=== PATIENT | female | born 1955 | race Caucasian/White ===

== ENCOUNTER 2016-03-12 08:08 | Inpatient (IN) | payer OTHER ==
[~2016-03-12] VITALS: Ht 154.9 cm; Wt 67.3 kg
[2016-03-12] MEDS ORDERED: ONDANSETRON PF 4 MG/2 ML VIAL. IV PRN ×2 (08:30→14:30)
[2016-03-12] MEDS ORDERED: MORPHINE SULFATE 2 MG/ML DISP.SYRIN. IV PRN (08:30)
--- NOTE | 2016-03-12 08:58 | EKG ---
[facility] [address] [place] [address] Test Date: 2016-03-12 Test Time: 08:31:35 Pat Name: SHAVON LIM Department: Room: Gender: F Maintenance Machinist: : [id number] Requested By: HILDA SILVEIRA Order Number: [id number] Reading MD: Measurements Intervals [place] Rate: 84 P: 50 [place]: 210 QRS: 52 QRSD: 108 T: 55 QT: 378 QTc: 450 Interpretive Statements SINUS RHYTHM LEFT ATRIAL ABNORMALITY ABNORMAL ECG RI6.01 No previous ECG available for comparison
[2016-03-12 09:04] LABS: BASO % 0 % (0-3); EOS % 0 % (0-3); HEMATOCRIT 38.8 % (36.0-47.0); HEMOGLOBIN 12.5 g/dL (12.0-15.5); LYMPH # 1.1 x10^3/uL (1.0-4.8); LYMPH % 7 % (24-48); MEAN CORPUSCULAR HEMOGLOBIN 29 pg (25-35); MEAN CORPUSCULAR HGB CONC 32 g/dL (31-37); MEAN CORPUSCULAR VOLUME 90 fL (79-100); MONO % 3 % (0-9); NEUT % 89 % (31-73); PLATELET COUNT 293 x10^3/uL (140-400); RED BLOOD COUNT 4.33 x10^6/uL (3.50-5.40); RED CELL DISTRIBUTION WIDTH 17.3 % (11.5-14.5); WHITE BLOOD COUNT 15.4 x10^3/uL (4.0-11.0)
[2016-03-12 09:13] LABS: INR 1.2 (0.8-1.1); PROTHROMBIN TIME PATIENT 14.7 SEC (11.7-14.0)
[2016-03-12 09:27] LABS: CALCIUM 9.4 mg/dL (8.5-10.1); CREATININE 2.1 mg/dL (0.6-1.0); GFR 23.9
--- NOTE | 2016-03-12 09:27 | RAD ---
AP portable chest radiograph 03/12/2016 Clinical History: Hypoxia. An AP portable erect digital radiograph of the chest was obtained. No previous studies are available for comparison. The cardiac and mediastinal silhouettes are within normal limits in size and configuration. Linear bands of subsegmental atelectasis seen involving both lower lobes. No area of consolidation is seen. No pneumothorax or pleural effusion is noted. Degenerative changes are seen involving the thoracic spine and both shoulders. Impression: Linear bands of subsegmental atelectasis are seen involving both lower lobes. No area of consolidation is seen.
[2016-03-12] MEDS ORDERED: DIPHTH,PERTUSS(ACELL),TET TOX 0.5 ML DISP.SYRIN. VAX IM ONE (09:30)
[2016-03-12 09:31] LABS: ALBUMIN 3.3 g/dL (3.4-5.0); DIRECT BILIRUBIN 0.1 mg/dL (0.0-0.2); TOTAL BILIRUBIN 0.6 mg/dL (0.2-1.0); TOTAL PROTEIN 8.4 g/dL (6.4-8.2)
--- NOTE | 2016-03-12 09:33 | RAD ---
CT scan of the head without contrast 03/12/2016 Clinical History: Fall with head trauma. Technique: Unenhanced, contiguous, 5 mm axial sections were obtained through the head. One or more of the following individualized dose reduction techniques were utilized for this study: 1. Automated exposure control. 2. Adjustment of the mA and/or kV according to patient size. 3. Use of iterative reconstruction technique. Findings: No previous studies are available for comparison. There is generalized parenchymal atrophy. Small scattered areas of decreased attenuation are seen within the periventricular and subcortical white matter of both cerebral hemispheres consistent with areas of small vessel ischemic disease. No acute parenchymal abnormality is seen. No extra-axial fluid collection is noted. No skull fracture is seen. Impression: No acute intracranial abnormality is seen. CT scan of the cervical spine without contrast 03/12/2016 Clinical history: Neck pain post fall. Technique: Unenhanced, contiguous, 0.625 mm axial sections were obtained through the cervical spine. 3 mm reconstructed sagittal, axial, and and coronal images were obtained. One or more of the following individualized dose reduction techniques were utilized for this study: 1. Automated exposure control. 2. Adjustment of the mA and/or kV according to patient size. 3. Use of iterative reconstruction technique. Findings: Sagittal and coronal reconstructed images demonstrate very mild lateral curvature of the lumbar spine convex to the right. There is straightening of the normal cervical lordosis. Degenerative changes consisting of disc space narrowing, vertebral endplate sclerosis and mild to moderate anterior and posterior vertebral body osteophyte formation seen along the mid and lower cervical disc spaces. No fracture or subluxation of the cervical vertebrae seen. Degenerative changes are seen involving the uncovertebral and facet joints throughout the cervical disc spaces. Impression: No fracture or subluxation of the cervical vertebra is seen.
--- NOTE | 2016-03-12 09:36 | PHYS DOC ---
Past Medical History Past Medical History: Bipolar, Bronchitis Additional Past Medical Histor: morgellons disease Past Surgical History: Hysterectomy, Knee Replacement, Tonsillectomy Alcohol Use: None Drug Use: None Adult General Chief Complaint Chief Complaint: MECHANICAL FALL HPI HPI 60-year-old female presenting to the emergency department today after reportedly falling approximately 2 hours prior to arrival. She reports slipping on a step and injuring her head. She presents with an abrasion to her left forehead. She reports insomnia recently but denies pain in her neck chest abdomen or pelvis. Onset 2 hours Location head Duration intermittent No alleviating factors Review of systems is negative for chest pain shortness of breath abdominal pain nausea vomiting fevers chills cough. All other review of systems is negative unless otherwise noted in history of present illness. Review of Systems Review of Systems SEE ABOVE. Current Medications Current Medications Current Medications Medications (Trade) Dose Ordered Sig/Yeny Start Time Stop Time Status Last Admin Dose Admin Diphtheria/ Tetanus/Acell Pertussis (Boostrix) 0.5 ml ONCE ONCE 03/12/16 09:30 03/12/16 09:37 DC Morphine Sulfate 2 mg PRN Q2HR PRN 03/12/16 08:30 03/13/16 08:29 Ondansetron HCl (Zofran) 4 mg PRN Q8HRS PRN 03/12/16 08:30 03/13/16 08:29 Allergies Allergies Allergies Coded Allergies Type Severity Reaction Last Updated Verified No Known Drug Allergies 03/12/16 No Physical Exam Physical Exam Constitutional: Well developed, well nourished, no acute distress, non-toxic appearance. HENT: Normocephalic, abrasion to the left forehead. Nontender midline cervical spine. Nontender thoracic and lumbar spine of the back. No step-offs present of the back. No abrasions lacerations or ecchymosis of the back present. bilateral external ears normal, oropharynx moist, no oral exudates, nose normal. Eyes: PERRLA, EOMI, conjunctiva normal, no discharge. Neck: Normal range of motion, no tenderness, supple, no stridor. Cardiovascular:Heart rate regular rhythm, no murmur Lungs & Thorax: Bilateral breath sounds clear to auscultation [] Abdomen: Bowel sounds normal, soft, no tenderness, no masses, no pulsatile masses. Skin: Warm, dry, no erythema, no rash. [] Back: No tenderness, no CVA tenderness. SEE ABOVE Extremities: Patient's left hand has small abrasion. Mild tenderness locally without swelling. Normal neurovascular status distally with 2 second cap refill. Palpable pulse. Otherwise nontender extremities with normal range of motion. Neurologic: Alert and oriented X 3, normal motor function, normal sensory function, no focal deficits noted. Psychologic: Affect normal, judgement normal, mood normal. [] Current Patient Data Vital Signs Vital Signs Date Time Temp Pulse Resp B/P Pulse Ox O2 Delivery O2 Flow Rate FiO2 03/12/16 08:30 97.4 83 18 147/64 85 Room Air 97.4 Lab Values Laboratory Tests Test 03/12/16 08:54 White Blood Count 15.4x10^3/uL (4.0-11.0) H Red Blood Count 4.33x10^6/uL (3.50-5.40) Hemoglobin 12.5g/dL (12.0-15.5) Hematocrit 38.8% (36.0-47.0) Mean Corpuscular Volume 90fL (79-100) Mean Corpuscular Hemoglobin 29pg (25-35) Mean Corpuscular Hemoglobin Concent 32g/dL (31-37) Red Cell Distribution Width 17.3% (11.5-14.5) H Platelet Count 293x10^3/uL (140-400) Neutrophils (%) (Auto) 89% (31-73) H Lymphocytes (%) (Auto) 7% (24-48) L Monocytes (%) (Auto) 3% (0-9) Eosinophils (%) (Auto) 0% (0-3) Basophils (%) (Auto) 0% (0-3) Neutrophils # (Auto) 13.7x10^3uL (1.8-7.7) H Lymphocytes # (Auto) 1.1x10^3/uL (1.0-4.8) Monocytes # (Auto) 0.5x10^3/uL (0.0-1.1) Eosinophils # (Auto) 0.0x10^3/uL (0.0-0.7) Basophils # (Auto) 0.0x10^3/uL (0.0-0.2) Platelet Estimate Pending Prothrombin Time 14.7SEC (11.7-14.0) H Prothrombin Time INR 1.2 (0.8-1.1) H PTT 35SEC (24-38) Sodium Level 140mmol/L (136-145) Potassium Level 5.0mmol/L (3.5-5.1) Chloride Level 102mmol/L (98-107) Carbon Dioxide Level 26mmol/L (21-32) Anion Gap 12 (6-14) Blood Urea Nitrogen 62mg/dL (7-20) H Creatinine 2.1mg/dL (0.6-1.0) H Estimated GFR (Cockcroft-Gault) 23.9 Glucose Level 165mg/dL (70-99) H Serum Osmolality 314mOsm/Kg (279-304) H Lactic Acid Level 1.0mmol/L (0.4-2.0) Calcium Level 9.4mg/dL (8.5-10.1) Total Bilirubin 0.6mg/dL (0.2-1.0) Direct Bilirubin 0.1mg/dL (0.0-0.2) Aspartate Amino Transferase (AST) 25U/L (15-37) Alanine Aminotransferase (ALT) 16U/L (14-59) Alkaline Phosphatase 121U/L (46-116) H Troponin I Quantitative < 0.017ng/mL (0.000-0.055) EO-Ksf-N-Type Natriuretic Peptide 1403pg/mL (0-124) H Total Protein 8.4g/dL (6.4-8.2) H Albumin 3.3g/dL (3.4-5.0) L Lipase 71U/L (73-393) L Salicylates Level 4.2mg/dL (2.8-20.0) Salicylate Last Dose Date Unknown Salicylate Last Dose Time Unknown Acetaminophen Level < 2mcg/ml (10-30) L Acetaminophen Last Dose Date Unknown Acetaminophen Last Dose Time Unknown Ethyl Alcohol Level < 10mg/dL (0-10) Laboratory Tests 03/12/16 08:54 Laboratory Tests 03/12/16 08:54 EKG EKG []EKG shows sinus rhythm with regular rate. Normal intervals. Normal axis. ST segments are congruent. Not suggestive of ACS. Reviewed by myself. Radiology/Procedures Radiology/Procedures [] Course & Med Decision Making Course & Med Decision Making Pertinent Labs and Imaging studies reviewed. (See chart for details) [] 60-year-old female presenting to the emergency department with traumatic mechanical fall with head injury approximately 2 hours prior to arrival. On initial evaluation the patient's vital signs showed that she was afebrile with a regular rate. Saturating 85% on room air. Nasal cannula applied. Otherwise mildly hypertensive. Patient is alert and oriented to person place and person. Otherwise nonfocal neurologic exam. EKG unremarkable. Chest x-ray shows atelectasis. Head CT and C-spine CT neg for acute pathology. Blood work obtained which shows leukocytosis which may be traumatic. Coagulation testing just above the reference range of normal. Given the patient's hypoxia. The patient was admitted to our hospital for further evaluation monitoring workup and care. Dragon Disclaimer Dragon Disclaimer This electronic medical record was generated, in whole or in part, using a voice recognition dictation system. Departure Departure Impression: Primary Impression: Hypoxia Additional Impression: Head trauma Disposition: ADMITTED INPATIENT Admitting Physician: Hector Fletcher Condition: STABLE Problem Qualifiers HILDA SILVEIRA MD Mar 12, 2016 09:36
[2016-03-12 09:45] LABS: ETHANOL < 10 mg/dL (0-10)
--- NOTE | 2016-03-12 09:55 | RAD ---
Three-view left hand radiographs 03/12/2016 Clinical history: Left hand abrasion. PA, lateral and oblique digital radiographs of the left hand were obtained. No fracture or dislocation of the left hand is seen. Mild degenerative changes are seen throughout the interphalangeal joints of the left hand. Mild to moderate degenerative changes are seen involving the first carpometacarpal joint. No radiopaque foreign body is seen. Impression: No fracture or dislocation of the left hand is seen.
[2016-03-12 10:03] LABS: BILIRUBIN,URINE SMALL (NEG); GLUCOSE,URINE NEGATIVE (NEG); NITRITE,URINE NEGATIVE (NEG); PROTEIN,URINE 100 mg/dL (NEG-TRACE); UROBILINOGEN,URINE 0.2 mg/dL (0.2 mg/dL)
[2016-03-12 10:25] LABS: BARBITURATES NEG (NEG); BENZODIAZEPINES NEG (NEG); CANNABINOIDS NEG (NEG); COCAINE NEG (NEG); METHADONE NEG (NEG); OPIATES POS (NEG); PHENCYCLIDINE NEG (NEG)
[2016-03-12 10:27] LABS: BACTERIA,URINE FEW /HPF (0-FEW); ETHANOL, URINE NEG (NEG); SQUAMOUS EPITHELIAL CELL,UR FEW /LPF
[2016-03-12 11:00] VITALS: BP 128/72
[2016-03-12] MEDS: IV NORMAL SALINE 1000ML BAG 1,000 ML IV SCH ×3 (12:23→22:27)
[2016-03-12 12:25] LABS: HCO3 ABG 24 mmol/L (21-28); PCO2 ABG 53 mmHg (35-46); PH ABG 7.28 (7.35-7.45); PO2 ABG 59 mmHg (65-108); SAT O2 ABG 88 % (92-99)
[2016-03-12 12:26] LABS: FIO2 ABG 32%
[2016-03-12] MEDS ORDERED: ALBUTEROL SULFATE 2.5 MG/3 ML NEBU. NEB PRN (14:30)
[2016-03-12] MEDS ORDERED: ACETAMINOPHEN 325 MG TABLET. PO PRN (14:30)
--- NOTE | 2016-03-12 14:34 | PDOC1 ---
History and Physical Date of Admission Date of Admission 03/12/16 Identification/Chief Complaint Chief Complaint fall Problems: Source Source: Chart review, Patient History of Present Illness History of Present Illness HPI 60-year-old female presenting to the emergency department today post fall. Pt is lethargic, closing her eyes most of time , answer some of my questions. Pt seems come from a long term, fell today ,and was sent here. She said she didnot know why she is here, denies fever, chills, N/V, diarrhea. + mild cough. smoker 1PPD She reports slipping on a step and injuring her head. She presents with an abrasion to her left forehead. She reports insomnia recently but denies pain in her neck chest abdomen or pelvis. Past Medical History Past Medical History Bipolar, Bronchitis Additional Past Medical Histor: morgellons disease Past Surgical History Past Surgical History Hysterectomy, Knee Replacement, Tonsillectomy Family History Family History: No Significant Social History Smoke: 1 pack per day ALCOHOL: social Drugs: None Current Problem List Problem List Problems Medical Problems: (1) Head trauma Status: Acute (2) Hypoxia Status: Acute (3) Hypoxic Status: Acute Current Medications Current Medications Current Medications Medications (Trade) Dose Ordered Sig/Yeny Start Time Stop Time Status Last Admin Dose Admin Diphtheria/ Tetanus/Acell Pertussis 0.5 ml 0.5 ml ONCE ONCE 03/12/16 09:30 03/12/16 09:37 DC Morphine Sulfate 2 mg PRN Q2HR PRN 03/12/16 08:30 03/13/16 08:29 Ondansetron HCl (Zofran) 4 mg PRN Q8HRS PRN 03/12/16 08:30 03/13/16 08:29 Sodium Chloride (Iv Sodium Chloride 0.9% 1000ml Bag) 1,000 ml @ 100 mls/hr Q10H 03/12/16 12:15 03/12/16 13:25 100 MLS/HR Allergies Allergies Allergies Coded Allergies Type Severity Reaction Last Updated Verified No Known Drug Allergies 03/12/16 No ROS Review of System CONSTITUTIONAL: No fever or chills EYES: No recent changes SKIN: No rash or itching CARDIOVASCULAR: No chest pain, syncope, palpitations, or edema RESPIRATORY: No SOB or cough GASTROINTESTINAL: No nausea, vomiting or abdominal pain NEUROLOGICAL: No headaches or weakness ENDOCRINE: No cold or heat intolerance GENITOURINARY: No urgency or frequency of urination MUSCULOSKELETAL: No back pain or joint pain LYMPHATICS: No enlarged lymph nodes PSYCHIATRIC: No anxiety or depression Physical Exam Physical Exam GEN.: No apparent distress. lethargic, knows place, person, not years HEENT: Head is normocephalic, atraumatic NECK: Supple. LUNGS: bl rhonchis HEART: RRR, S1, S2 present. Peripheral pulses intact ABDOMEN: Soft, nontender. Positive bowel sounds. EXTREMITIES: Without any cyanosis. NEUROLOGIC: Normal speech, normal tone PSYCHIATRIC: Normal affect, normal mood. SKIN: No ulcerations Vitals Vitals Vital Signs Date Time Temp Pulse Resp B/P Pulse Ox O2 Delivery O2 Flow Rate FiO2 03/12/16 10:41 Nasal Cannula 3.0 03/12/16 10:00 82 16 155/70 98 03/12/16 08:30 97.4 97.4 Labs Labs Laboratory Tests Test 03/12/16 08:54 03/12/16 09:52 03/12/16 12:05 White Blood Count 15.4x10^3/uL (4.0-11.0) Red Blood Count 4.33x10^6/uL (3.50-5.40) Hemoglobin 12.5g/dL (12.0-15.5) Hematocrit 38.8% (36.0-47.0) Mean Corpuscular Volume 90fL (79-100) Mean Corpuscular Hemoglobin 29pg (25-35) Mean Corpuscular Hemoglobin Concent 32g/dL (31-37) Red Cell Distribution Width 17.3% (11.5-14.5) Platelet Count 293x10^3/uL (140-400) Neutrophils (%) (Auto) 89% (31-73) Lymphocytes (%) (Auto) 7% (24-48) Monocytes (%) (Auto) 3% (0-9) Eosinophils (%) (Auto) 0% (0-3) Basophils (%) (Auto) 0% (0-3) Neutrophils # (Auto) 13.7x10^3uL (1.8-7.7) Lymphocytes # (Auto) 1.1x10^3/uL (1.0-4.8) Monocytes # (Auto) 0.5x10^3/uL (0.0-1.1) Eosinophils # (Auto) 0.0x10^3/uL (0.0-0.7) Basophils # (Auto) 0.0x10^3/uL (0.0-0.2) Prothrombin Time 14.7SEC (11.7-14.0) Prothromb Time International Ratio 1.2 (0.8-1.1) Activated Partial Thromboplast Time 35SEC (24-38) Sodium Level 140mmol/L (136-145) Potassium Level 5.0mmol/L (3.5-5.1) Chloride Level 102mmol/L (98-107) Carbon Dioxide Level 26mmol/L (21-32) Anion Gap 12 (6-14) Blood Urea Nitrogen 62mg/dL (7-20) Creatinine 2.1mg/dL (0.6-1.0) Estimated GFR (Cockcroft-Gault) 23.9 Glucose Level 165mg/dL (70-99) Serum Osmolality 314mOsm/Kg (279-304) Lactic Acid Level 1.0mmol/L (0.4-2.0) Calcium Level 9.4mg/dL (8.5-10.1) Total Bilirubin 0.6mg/dL (0.2-1.0) Direct Bilirubin 0.1mg/dL (0.0-0.2) Aspartate Amino Transf (AST/SGOT) 25U/L (15-37) Alanine Aminotransferase (ALT/SGPT) 16U/L (14-59) Alkaline Phosphatase 121U/L (46-116) Troponin I Quantitative < 0.017ng/mL (0.000-0.055) XB-Nwv-W-Type Natriuretic Peptide 1403pg/mL (0-124) Total Protein 8.4g/dL (6.4-8.2) Albumin 3.3g/dL (3.4-5.0) Lipase 71U/L (73-393) Salicylates Level 4.2mg/dL (2.8-20.0) Salicylate Last Dose Date Unknown Salicylate Last Dose Time Unknown Acetaminophen Level < 2mcg/ml (10-30) Acetaminophen Last Dose Date Unknown Acetaminophen Last Dose Time Unknown Ethyl Alcohol Level < 10mg/dL (0-10) Urine Collection Type U cath Urine Color Yellow Urine Clarity Cloudy Urine pH 5.0 Urine Specific [place] 1.025 Urine Protein 100mg/dL (NEG-TRACE) Urine Glucose (UA) Negativemg/dL (NEG) Urine Ketones (Stick) Tracemg/dL (NEG) Urine Blood Moderate (NEG) Urine Nitrite Negative (NEG) Urine Bilirubin Small (NEG) Urine Urobilinogen Dipstick 0.2mg/dL (0.2 mg/dL) Urine Leukocyte Esterase Negative (NEG) Urine RBC 3-5/HPF (0-2) Urine WBC 1-4/HPF (0-4) Urine Squamous Epithelial Cells Few/LPF Urine Renal Epithelial Cells Few/LPF Urine Amorphous Sediment Present/HPF Urine Bacteria Few/HPF (0-FEW) Urine Hyaline Casts Moderate/HPF Urine Mucus Mod/LPF Urine Opiates Screen Pos (NEG) Urine Methadone Screen Neg (NEG) Urine Barbiturates Neg (NEG) Urine Phencyclidine Screen Neg (NEG) Urine Amphetamine/Methamphetamine Neg (NEG) Urine Benzodiazepines Screen Neg (NEG) Urine Cocaine Screen Neg (NEG) Urine Cannabinoids Screen Neg (NEG) Urine Ethyl Alcohol Neg (NEG) O2 Saturation 88% (92-99) Arterial Blood pH 7.28 (7.35-7.45) Arterial Blood pCO2 at Patient Temp 53mmHg (35-46) Arterial Blood pO2 at Patient Temp 59mmHg (65-108) Arterial Blood HCO3 24mmol/L (21-28) Arterial Blood Base Excess -3mmol/L (-3-3) FiO2 32% Laboratory Tests Test 03/12/16 08:54 03/12/16 09:52 03/12/16 12:05 White Blood Count 15.4x10^3/uL (4.0-11.0) Red Blood Count 4.33x10^6/uL (3.50-5.40) Hemoglobin 12.5g/dL (12.0-15.5) Hematocrit 38.8% (36.0-47.0) Mean Corpuscular Volume 90fL (79-100) Mean Corpuscular Hemoglobin 29pg (25-35) Mean Corpuscular Hemoglobin Concent 32g/dL (31-37) Red Cell Distribution Width 17.3% (11.5-14.5) Platelet Count 293x10^3/uL (140-400) Neutrophils (%) (Auto) 89% (31-73) Lymphocytes (%) (Auto) 7% (24-48) Monocytes (%) (Auto) 3% (0-9) Eosinophils (%) (Auto) 0% (0-3) Basophils (%) (Auto) 0% (0-3) Neutrophils # (Auto) 13.7x10^3uL (1.8-7.7) Lymphocytes # (Auto) 1.1x10^3/uL (1.0-4.8) Monocytes # (Auto) 0.5x10^3/uL (0.0-1.1) Eosinophils # (Auto) 0.0x10^3/uL (0.0-0.7) Basophils # (Auto) 0.0x10^3/uL (0.0-0.2) Prothrombin Time 14.7SEC (11.7-14.0) Prothromb Time International Ratio 1.2 (0.8-1.1) Activated Partial Thromboplast Time 35SEC (24-38) Sodium Level 140mmol/L (136-145) Potassium Level 5.0mmol/L (3.5-5.1) Chloride Level 102mmol/L (98-107) Carbon Dioxide Level 26mmol/L (21-32) Anion Gap 12 (6-14) Blood Urea Nitrogen 62mg/dL (7-20) Creatinine 2.1mg/dL (0.6-1.0) Estimated GFR (Cockcroft-Gault) 23.9 Glucose Level 165mg/dL (70-99) Serum Osmolality 314mOsm/Kg (279-304) Lactic Acid Level 1.0mmol/L (0.4-2.0) Calcium Level 9.4mg/dL (8.5-10.1) Total Bilirubin 0.6mg/dL (0.2-1.0) Direct Bilirubin 0.1mg/dL (0.0-0.2) Aspartate Amino Transf (AST/SGOT) 25U/L (15-37) Alanine Aminotransferase (ALT/SGPT) 16U/L (14-59) Alkaline Phosphatase 121U/L (46-116) Troponin I Quantitative < 0.017ng/mL (0.000-0.055) JY-Zhe-I-Type Natriuretic Peptide 1403pg/mL (0-124) Total Protein 8.4g/dL (6.4-8.2) Albumin 3.3g/dL (3.4-5.0) Lipase 71U/L (73-393) Salicylates Level 4.2mg/dL (2.8-20.0) Salicylate Last Dose Date Unknown Salicylate Last Dose Time Unknown Acetaminophen Level < 2mcg/ml (10-30) Acetaminophen Last Dose Date Unknown Acetaminophen Last Dose Time Unknown Ethyl Alcohol Level < 10mg/dL (0-10) Urine Collection Type U cath Urine Color Yellow Urine Clarity Cloudy Urine pH 5.0 Urine Specific [place] 1.025 Urine Protein 100mg/dL (NEG-TRACE) Urine Glucose (UA) Negativemg/dL (NEG) Urine Ketones (Stick) Tracemg/dL (NEG) Urine Blood Moderate (NEG) Urine Nitrite Negative (NEG) Urine Bilirubin Small (NEG) Urine Urobilinogen Dipstick 0.2mg/dL (0.2 mg/dL) Urine Leukocyte Esterase Negative (NEG) Urine RBC 3-5/HPF (0-2) Urine WBC 1-4/HPF (0-4) Urine Squamous Epithelial Cells Few/LPF Urine Renal Epithelial Cells Few/LPF Urine Amorphous Sediment Present/HPF Urine Bacteria Few/HPF (0-FEW) Urine Hyaline Casts Moderate/HPF Urine Mucus Mod/LPF Urine Opiates Screen Pos (NEG) Urine Methadone Screen Neg (NEG) Urine Barbiturates Neg (NEG) Urine Phencyclidine Screen Neg (NEG) Urine Amphetamine/Methamphetamine Neg (NEG) Urine Benzodiazepines Screen Neg (NEG) Urine Cocaine Screen Neg (NEG) Urine Cannabinoids Screen Neg (NEG) Urine Ethyl Alcohol Neg (NEG) O2 Saturation 88% (92-99) Arterial Blood pH 7.28 (7.35-7.45) Arterial Blood pCO2 at Patient Temp 53mmHg (35-46) Arterial Blood pO2 at Patient Temp 59mmHg (65-108) Arterial Blood HCO3 24mmol/L (21-28) Arterial Blood Base Excess -3mmol/L (-3-3) FiO2 32% VTE Prophylaxis Ordered VTE Prophylaxis Devices: Yes VTE Pharmacological Prophylaxi: Yes Assessment/Plan Assessment/Plan 1. fall 2. NEW wo cr baseline number, vasomotor 3. COPD LIKEly with smoking 4. acute resp failure, likely has chronic hypoxic and hypercapnic resp failure 5. AMS 2/2 2 and 3 6. bipolar 7. morgellons diz with bl arms rashs 8. mild malnutrition 9. homeless plan: 1. pulm , renal, consult 2. duoneb, doxy 3. prednisone dvt , gi ppx ivf can feed when wake up ABG DMITRY JIMENEZ MD Mar 12, 2016 14:34
[2016-03-12 15:00] VITALS: BP 107/67
[2016-03-12] MEDS: PREDNISONE 20 MG TABLET PO SCH ×2 (15:00→16:37)
[2016-03-12 15:11] LABS: PLT ESTIMATE ADEQUATE (ADEQUATE); TOXIC GRANULATION MOD
[2016-03-12] MEDS: IPRATRPIUM/ALBUTEROL 0.5/2.5MG 3 ML NEBU. NEB SCH ×2 (15:47→19:52)
[2016-03-12 19:00] VITALS: BP 111/54
[2016-03-12] MEDS ORDERED: DOXYCYCLINE HYCLATE 100 MG TABLET PO SCH (21:00)
[2016-03-12] MEDS: FAMOTIDINE 20 MG TABLET. PO SCH (21:15)
[2016-03-12] MEDS: HEPARIN PF for SUB-Q USE 5,000 UNIT/0.5 ML VIAL. SQ SCH (21:27)
[2016-03-12] MEDS: NYSTATIN TOPICAL POWDER 15GM BOTTLE. TP SCH (21:58)
[2016-03-12 23:00] VITALS: BP 116/66
[2016-03-13 03:00] VITALS: BP 118/58
[2016-03-13 04:54] LABS: CALCIUM 8.6 mg/dL (8.5-10.1); CREATININE 1.4 mg/dL (0.6-1.0); GFR 38.2; POTASSIUM 4.3 mmol/L (3.5-5.1)
[2016-03-13 05:00] LABS: BASO % 0 % (0-3); EOS % 2 % (0-3); HEMATOCRIT 33.5 % (36.0-47.0); HEMOGLOBIN 10.8 g/dL (12.0-15.5); LYMPH % 23 % (24-48); MEAN CORPUSCULAR HEMOGLOBIN 29 pg (25-35); MEAN CORPUSCULAR HGB CONC 32 g/dL (31-37); MEAN CORPUSCULAR VOLUME 89 fL (79-100); MONO % 8 % (0-9); NEUT % 67 % (31-73); PLATELET COUNT 294 x10^3/uL (140-400); RED BLOOD COUNT 3.77 x10^6/uL (3.50-5.40); RED CELL DISTRIBUTION WIDTH 16.5 % (11.5-14.5); WHITE BLOOD COUNT 12.9 x10^3/uL (4.0-11.0)
[2016-03-13] MEDS: HEPARIN PF for SUB-Q USE 5,000 UNIT/0.5 ML VIAL. SQ SCH ×3 (06:31→21:32)
[2016-03-13 07:00] VITALS: BP 139/76
[2016-03-13] MEDS: IV NORMAL SALINE 1000ML BAG 1,000 ML IV SCH ×2 (07:39→19:45)
[2016-03-13] MEDS: PREDNISONE 20 MG TABLET PO SCH ×2 (07:41→08:15)
[2016-03-13] MEDS: GUAIFENESIN 200 MG/10 ML LIQUID. PO PRN (08:07)
--- NOTE | 2016-03-13 09:27 | PDOC ---
PROGRESS NOTES Chief Complaint Chief Complaint 1. s/p fall - encephalopathy, post concussive 2. NEW wo cr baseline number, vasomotor 3. COPD, acidosis on ABG, acute hypercarbia 4. acute hypoxia, possible chronic resp failure, and hypercapnic resp failure 5. bipolar d/o 6. arm rash 7. mild malnutrition 8. weakness, aq History of Present Illness History of Present Illness 1. pulm , consult 2. tavon walker 3. prednisone, she refused up with assist needs placement, possible in a detention 6 min walk Vitals Vitals Vital Signs Date Time Temp Pulse Resp B/P Pulse Ox O2 Delivery O2 Flow Rate FiO2 03/13/16 07:00 98.0 78 17 139/76 97 Room Air 98.0 03/12/16 20:15 3.0 Physical Exam General: Alert, No acute distress, Other (mod cooperative) Heart: Regular rate Lungs: Other (rales) Abdomen: Normal bowel sounds, Soft Extremities: No cyanosis Skin: No rashes Labs LABS Laboratory Tests Test 03/12/16 09:52 03/12/16 12:05 03/12/16 13:50 03/12/16 20:30 Urine Collection Type U cath Urine Color Yellow Urine Clarity Cloudy Urine pH 5.0 Urine Specific [place] 1.025 Urine Protein 100mg/dL (NEG-TRACE) Urine Glucose (UA) Negativemg/dL (NEG) Urine Ketones (Stick) Tracemg/dL (NEG) Urine Blood Moderate (NEG) Urine Nitrite Negative (NEG) Urine Bilirubin Small (NEG) Urine Urobilinogen Dipstick 0.2mg/dL (0.2 mg/dL) Urine Leukocyte Esterase Negative (NEG) Urine RBC 3-5/HPF (0-2) Urine WBC 1-4/HPF (0-4) Urine Squamous Epithelial Cells Few/LPF Urine Renal Epithelial Cells Few/LPF Urine Amorphous Sediment Present/HPF Urine Bacteria Few/HPF (0-FEW) Urine Hyaline Casts Moderate/HPF Urine Mucus Mod/LPF Urine Opiates Screen Pos (NEG) Urine Methadone Screen Neg (NEG) Urine Barbiturates Neg (NEG) Urine Phencyclidine Screen Neg (NEG) Urine Amphetamine/Methamphetamine Neg (NEG) Urine Benzodiazepines Screen Neg (NEG) Urine Cocaine Screen Neg (NEG) Urine Cannabinoids Screen Neg (NEG) Urine Ethyl Alcohol Neg (NEG) O2 Saturation 88% (92-99) Arterial Blood pH 7.28 (7.35-7.45) Arterial Blood pCO2 at Patient Temp 53mmHg (35-46) Arterial Blood pO2 at Patient Temp 59mmHg (65-108) Arterial Blood HCO3 24mmol/L (21-28) Arterial Blood Base Excess -3mmol/L (-3-3) FiO2 32% Troponin I Quantitative < 0.017ng/mL (0.000-0.055) < 0.017ng/mL (0.000-0.055) Test 03/13/16 04:00 White Blood Count 12.9x10^3/uL (4.0-11.0) Red Blood Count 3.77x10^6/uL (3.50-5.40) Hemoglobin 10.8g/dL (12.0-15.5) Hematocrit 33.5% (36.0-47.0) Mean Corpuscular Volume 89fL (79-100) Mean Corpuscular Hemoglobin 29pg (25-35) Mean Corpuscular Hemoglobin Concent 32g/dL (31-37) Red Cell Distribution Width 16.5% (11.5-14.5) Platelet Count 294x10^3/uL (140-400) Neutrophils (%) (Auto) 67% (31-73) Lymphocytes (%) (Auto) 23% (24-48) Monocytes (%) (Auto) 8% (0-9) Eosinophils (%) (Auto) 2% (0-3) Basophils (%) (Auto) 0% (0-3) Neutrophils # (Auto) 8.6x10^3uL (1.8-7.7) Lymphocytes # (Auto) 3.0x10^3/uL (1.0-4.8) Monocytes # (Auto) 1.0x10^3/uL (0.0-1.1) Eosinophils # (Auto) 0.2x10^3/uL (0.0-0.7) Basophils # (Auto) 0.0x10^3/uL (0.0-0.2) Sodium Level 141mmol/L (136-145) Potassium Level 4.3mmol/L (3.5-5.1) Chloride Level 106mmol/L (98-107) Carbon Dioxide Level 27mmol/L (21-32) Anion Gap 8 (6-14) Blood Urea Nitrogen 44mg/dL (7-20) Creatinine 1.4mg/dL (0.6-1.0) Estimated GFR (Cockcroft-Gault) 38.2 Glucose Level 113mg/dL (70-99) Calcium Level 8.6mg/dL (8.5-10.1) Review of Systems Review of Systems back pain, dyspnea confusion agitation Assessment and Plan Assessmemt and Plan Problems Medical Problems: (1) Head trauma Status: Acute (2) Hypoxia Status: Acute (3) Hypoxic Status: Acute Problems: Comment Review of Relevant I have reviewed the following items connie (where applicable) has been applied. Labs Laboratory Tests Test 03/12/16 08:54 03/12/16 09:52 03/12/16 12:05 03/12/16 13:50 White Blood Count 15.4x10^3/uL (4.0-11.0) Red Blood Count 4.33x10^6/uL (3.50-5.40) Hemoglobin 12.5g/dL (12.0-15.5) Hematocrit 38.8% (36.0-47.0) Mean Corpuscular Volume 90fL (79-100) Mean Corpuscular Hemoglobin 29pg (25-35) Mean Corpuscular Hemoglobin Concent 32g/dL (31-37) Red Cell Distribution Width 17.3% (11.5-14.5) Platelet Count 293x10^3/uL (140-400) Neutrophils (%) (Auto) 89% (31-73) Lymphocytes (%) (Auto) 7% (24-48) Monocytes (%) (Auto) 3% (0-9) Eosinophils (%) (Auto) 0% (0-3) Basophils (%) (Auto) 0% (0-3) Neutrophils # (Auto) 13.7x10^3uL (1.8-7.7) Lymphocytes # (Auto) 1.1x10^3/uL (1.0-4.8) Monocytes # (Auto) 0.5x10^3/uL (0.0-1.1) Eosinophils # (Auto) 0.0x10^3/uL (0.0-0.7) Basophils # (Auto) 0.0x10^3/uL (0.0-0.2) Segmented Neutrophils % 86% (35-66) Band Neutrophils % 4% (0-9) Lymphocytes % 8% (24-48) Monocytes % 2% (0-10) Toxic Granulation Mod Platelet Estimate Adequate (ADEQUATE) Prothrombin Time 14.7SEC (11.7-14.0) Prothromb Time International Ratio 1.2 (0.8-1.1) Activated Partial Thromboplast Time 35SEC (24-38) Sodium Level 140mmol/L (136-145) Potassium Level 5.0mmol/L (3.5-5.1) Chloride Level 102mmol/L (98-107) Carbon Dioxide Level 26mmol/L (21-32) Anion Gap 12 (6-14) Blood Urea Nitrogen 62mg/dL (7-20) Creatinine 2.1mg/dL (0.6-1.0) Estimated GFR (Cockcroft-Gault) 23.9 Glucose Level 165mg/dL (70-99) Serum Osmolality 314mOsm/Kg (279-304) Lactic Acid Level 1.0mmol/L (0.4-2.0) Calcium Level 9.4mg/dL (8.5-10.1) Total Bilirubin 0.6mg/dL (0.2-1.0) Direct Bilirubin 0.1mg/dL (0.0-0.2) Aspartate Amino Transf (AST/SGOT) 25U/L (15-37) Alanine Aminotransferase (ALT/SGPT) 16U/L (14-59) Alkaline Phosphatase 121U/L (46-116) Troponin I Quantitative < 0.017ng/mL (0.000-0.055) < 0.017ng/mL (0.000-0.055) WA-Czs-U-Type Natriuretic Peptide 1403pg/mL (0-124) Total Protein 8.4g/dL (6.4-8.2) Albumin 3.3g/dL (3.4-5.0) Lipase 71U/L (73-393) Salicylates Level 4.2mg/dL (2.8-20.0) Salicylate Last Dose Date Unknown Salicylate Last Dose Time Unknown Acetaminophen Level < 2mcg/ml (10-30) Acetaminophen Last Dose Date Unknown Acetaminophen Last Dose Time Unknown Ethyl Alcohol Level < 10mg/dL (0-10) Urine Collection Type U cath Urine Color Yellow Urine Clarity Cloudy Urine pH 5.0 Urine Specific [place] 1.025 Urine Protein 100mg/dL (NEG-TRACE) Urine Glucose (UA) Negativemg/dL (NEG) Urine Ketones (Stick) Tracemg/dL (NEG) Urine Blood Moderate (NEG) Urine Nitrite Negative (NEG) Urine Bilirubin Small (NEG) Urine Urobilinogen Dipstick 0.2mg/dL (0.2 mg/dL) Urine Leukocyte Esterase Negative (NEG) Urine RBC 3-5/HPF (0-2) Urine WBC 1-4/HPF (0-4) Urine Squamous Epithelial Cells Few/LPF Urine Renal Epithelial Cells Few/LPF Urine Amorphous Sediment Present/HPF Urine Bacteria Few/HPF (0-FEW) Urine Hyaline Casts Moderate/HPF Urine Mucus Mod/LPF Urine Opiates Screen Pos (NEG) Urine Methadone Screen Neg (NEG) Urine Barbiturates Neg (NEG) Urine Phencyclidine Screen Neg (NEG) Urine Amphetamine/Methamphetamine Neg (NEG) Urine Benzodiazepines Screen Neg (NEG) Urine Cocaine Screen Neg (NEG) Urine Cannabinoids Screen Neg (NEG) Urine Ethyl Alcohol Neg (NEG) O2 Saturation 88% (92-99) Arterial Blood pH 7.28 (7.35-7.45) Arterial Blood pCO2 at Patient Temp 53mmHg (35-46) Arterial Blood pO2 at Patient Temp 59mmHg (65-108) Arterial Blood HCO3 24mmol/L (21-28) Arterial Blood Base Excess -3mmol/L (-3-3) FiO2 32% Test 03/12/16 20:30 03/13/16 04:00 Troponin I Quantitative < 0.017ng/mL (0.000-0.055) White Blood Count 12.9x10^3/uL (4.0-11.0) Red Blood Count 3.77x10^6/uL (3.50-5.40) Hemoglobin 10.8g/dL (12.0-15.5) Hematocrit 33.5% (36.0-47.0) Mean Corpuscular Volume 89fL (79-100) Mean Corpuscular Hemoglobin 29pg (25-35) Mean Corpuscular Hemoglobin Concent 32g/dL (31-37) Red Cell Distribution Width 16.5% (11.5-14.5) Platelet Count 294x10^3/uL (140-400) Neutrophils (%) (Auto) 67% (31-73) Lymphocytes (%) (Auto) 23% (24-48) Monocytes (%) (Auto) 8% (0-9) Eosinophils (%) (Auto) 2% (0-3) Basophils (%) (Auto) 0% (0-3) Neutrophils # (Auto) 8.6x10^3uL (1.8-7.7) Lymphocytes # (Auto) 3.0x10^3/uL (1.0-4.8) Monocytes # (Auto) 1.0x10^3/uL (0.0-1.1) Eosinophils # (Auto) 0.2x10^3/uL (0.0-0.7) Basophils # (Auto) 0.0x10^3/uL (0.0-0.2) Sodium Level 141mmol/L (136-145) Potassium Level 4.3mmol/L (3.5-5.1) Chloride Level 106mmol/L (98-107) Carbon Dioxide Level 27mmol/L (21-32) Anion Gap 8 (6-14) Blood Urea Nitrogen 44mg/dL (7-20) Creatinine 1.4mg/dL (0.6-1.0) Estimated GFR (Cockcroft-Gault) 38.2 Glucose Level 113mg/dL (70-99) Calcium Level 8.6mg/dL (8.5-10.1) Laboratory Tests Test 03/12/16 09:52 03/12/16 12:05 03/12/16 13:50 03/12/16 20:30 Urine Collection Type U cath Urine Color Yellow Urine Clarity Cloudy Urine pH 5.0 Urine Specific [place] 1.025 Urine Protein 100mg/dL (NEG-TRACE) Urine Glucose (UA) Negativemg/dL (NEG) Urine Ketones (Stick) Tracemg/dL (NEG) Urine Blood Moderate (NEG) Urine Nitrite Negative (NEG) Urine Bilirubin Small (NEG) Urine Urobilinogen Dipstick 0.2mg/dL (0.2 mg/dL) Urine Leukocyte Esterase Negative (NEG) Urine RBC 3-5/HPF (0-2) Urine WBC 1-4/HPF (0-4) Urine Squamous Epithelial Cells Few/LPF Urine Renal Epithelial Cells Few/LPF Urine Amorphous Sediment Present/HPF Urine Bacteria Few/HPF (0-FEW) Urine Hyaline Casts Moderate/HPF Urine Mucus Mod/LPF Urine Opiates Screen Pos (NEG) Urine Methadone Screen Neg (NEG) Urine Barbiturates Neg (NEG) Urine Phencyclidine Screen Neg (NEG) Urine Amphetamine/Methamphetamine Neg (NEG) Urine Benzodiazepines Screen Neg (NEG) Urine Cocaine Screen Neg (NEG) Urine Cannabinoids Screen Neg (NEG) Urine Ethyl Alcohol Neg (NEG) O2 Saturation 88% (92-99) Arterial Blood pH 7.28 (7.35-7.45) Arterial Blood pCO2 at Patient Temp 53mmHg (35-46) Arterial Blood pO2 at Patient Temp 59mmHg (65-108) Arterial Blood HCO3 24mmol/L (21-28) Arterial Blood Base Excess -3mmol/L (-3-3) FiO2 32% Troponin I Quantitative < 0.017ng/mL (0.000-0.055) < 0.017ng/mL (0.000-0.055) Test 03/13/16 04:00 White Blood Count 12.9x10^3/uL (4.0-11.0) Red Blood Count 3.77x10^6/uL (3.50-5.40) Hemoglobin 10.8g/dL (12.0-15.5) Hematocrit 33.5% (36.0-47.0) Mean Corpuscular Volume 89fL (79-100) Mean Corpuscular Hemoglobin 29pg (25-35) Mean Corpuscular Hemoglobin Concent 32g/dL (31-37) Red Cell Distribution Width 16.5% (11.5-14.5) Platelet Count 294x10^3/uL (140-400) Neutrophils (%) (Auto) 67% (31-73) Lymphocytes (%) (Auto) 23% (24-48) Monocytes (%) (Auto) 8% (0-9) Eosinophils (%) (Auto) 2% (0-3) Basophils (%) (Auto) 0% (0-3) Neutrophils # (Auto) 8.6x10^3uL (1.8-7.7) Lymphocytes # (Auto) 3.0x10^3/uL (1.0-4.8) Monocytes # (Auto) 1.0x10^3/uL (0.0-1.1) Eosinophils # (Auto) 0.2x10^3/uL (0.0-0.7) Basophils # (Auto) 0.0x10^3/uL (0.0-0.2) Sodium Level 141mmol/L (136-145) Potassium Level 4.3mmol/L (3.5-5.1) Chloride Level 106mmol/L (98-107) Carbon Dioxide Level 27mmol/L (21-32) Anion Gap 8 (6-14) Blood Urea Nitrogen 44mg/dL (7-20) Creatinine 1.4mg/dL (0.6-1.0) Estimated GFR (Cockcroft-Gault) 38.2 Glucose Level 113mg/dL (70-99) Calcium Level 8.6mg/dL (8.5-10.1) Medications Current Medications Ondansetron HCl (Zofran) 4 mg PRN Q8HRS PRN IV NAUSEA/VOMITING; Start 03/12/16 at 08:30; Stop 03/13/16 at 08:29; Status DC Morphine Sulfate 2 mg PRN Q2HR PRN IV PAIN; Start 03/12/16 at 08:30; Stop at 08:29; Status DC Diphtheria/ Tetanus/Acell Pertussis 0.5 ml 0.5 ml ONCE ONCE VAX IM ; Start at 09:30; Stop 03/12/16 at 09:37; Status DC Sodium Chloride (Iv Sodium Chloride 0.9% 1000ml Bag) 1,000 ml @ 100 mls/hr Q10H IV Last administered on 03/13/16 07:39; Start 03/12/16 at 12:15 Albuterol/ Ipratropium (Duoneb) 3 ml RTQID NEB Last administered on 03/12/16t 19 :52; Start 03/12/16 at 16:00 Albuterol Sulfate (Ventolin Neb Soln) 2.5 mg PRN Q4HRS PRN NEB SHORTNESS OF BREATH; Start 03/12/16 at 14:30 Doxycycline Hyclate (Vibra-Tab) 100 mg BID PO ; Start 03/12/16 at 21:00; Stop 03/12/16 at 21:44; Status DC Acetaminophen (Tylenol) 650 mg PRN Q6HRS PRN PO MILD PAIN / TEMP Last administered on 03/13/16 08:07; Start 03/12/16 at 14:30 Ondansetron HCl (Zofran) 4 mg PRN Q6HRS PRN IV NAUSEA/VOMITING; Start 03/12/16 at 14:30 Heparin Sodium (Porcine) 5,000 unit Q8HRS SQ Last administered on 03/13/16 06: 31; Start 03/12/16 at 22:00 Guaifenesin (Robitussin) 200 mg PRN Q4HRS PRN PO COUGH Last administered on 03/13 08:07; Start 03/12/16 at 14:45 Famotidine (Pepcid) 20 mg QHS PO Last administered on 03/12/16 21:15; Start 03/12/16 at 21:00 Prednisone 40 mg 40 mg DAILY PO ; Start 03/12/16 at 15:00 Levofloxacin/ Dextrose (LEVAQUIN 500mg PREMIX) 100 ml @ 100 mls/hr 1X ONCE IV ; Start 03/12/16 at 22:00; Stop 03/12/16 at 22:07; Status DC Nystatin 1 lilia 1 lilia BID TP Last administered on 03/12/16 21:58; Start 03/13/16 at 09:00 Levofloxacin/ Dextrose (LEVAQUIN 250mg PREMIX) 50 ml @ 50 mls/hr Q24H IV ; Start 03/13/16 at 22:00; Stop 03/13/16 at 22:00; Status DC Vitals/I & O Vital Sign - Last 24 Hours 03/12/16 03/12/16 03/12/16 03/12/16 09:30 10:00 10:41 11:00 Temp 97.6 97.6 Pulse 86 82 82 Resp 17 16 18 B/P 145/71 155/70 128/72 Pulse Ox 94 98 98 O2 Delivery Nasal Cannula Nasal Cannula Nasal Cannula Nasal Cannula O2 Flow Rate 3 3 3.0 3.0 03/12/16 03/12/16 03/12/16 03/12/16 15:00 15:50 19:00 19:54 Temp 97.8 98.0 97.8 98.0 Pulse 81 92 Resp 20 16 B/P 107/67 111/54 Pulse Ox 93 98 95 97 O2 Delivery Room Air Nasal Cannula Room Air Nasal Cannula O2 Flow Rate 3.0 3.0 03/12/16 03/12/16 03/13/16 03/13/16 20:15 23:00 03:00 07:00 Temp 98.1 98.4 98.0 98.1 98.4 98.0 Pulse 80 87 78 Resp 18 17 B/P 116/66 118/58 139/76 Pulse Ox 91 90 97 O2 Delivery Nasal Cannula Room Air Room Air Room Air O2 Flow Rate 3.0 Intake and Output 03/12/16 03/12/16 03/13/16 15:00 23:00 07:00 Intake Total 200 ml 1688 ml Balance 200 ml 1688 ml ALINE SHAW MD Mar 13, 2016 09:27
[2016-03-13] MEDS: IPRATRPIUM/ALBUTEROL 0.5/2.5MG 3 ML NEBU. NEB SCH ×5 (09:47→20:21)
--- NOTE | 2016-03-13 09:48 | PDOC ---
Provider Note Provider Note dictated see orders JEANNIE TERAN MD Mar 13, 2016 09:48
--- NOTE | 2016-03-13 10:37 | CONS ---
DATE OF CONSULTATION: 03/13/2016 ATTENDING PHYSICIAN: Dr. Fletcher. REASON FOR CONSULTATION: COPD, abnormal arterial blood gases. HISTORY OF PRESENT ILLNESS: The patient is a 60-year-old female who has been a smoker since teenage years. She used to smoke up to 2 packs per day, now down to 5 cigarettes a day. She was brought into the [facility] after a fall. The patient was reportedly lethargic. She was closing her eyes most of the time, but was able to answer some questions. The patient states that she saw her primary care doctor who prescribed amoxicillin prednisone and she thought that she has reaction to that. However, she also tells me that she has been taking Tylenol #3. Her arterial blood gases were abnormal with a pH of 7.28, pCO2 of 53 and a pO2 of 59 on 32% FIO2. She did not require BiPAP. I have been asked to see her for further evaluation. Today, she answers most of the questions, but it takes a longer time to answer simple questions. She is oriented to time, place and person. Her chest x-ray showed slightly prominent interstitial markings. I have been asked to see her for further evaluation. PAST MEDICAL HISTORY: Significant history of suspected severe COPD, history of bipolar disorder, Morgellons disease. PAST SURGICAL HISTORY: Hysterectomy, knee replacement, tonsillectomy. FAMILY HISTORY: Noncontributory. SOCIAL HISTORY: Smoked up to 2 packs per day since teenage years and down to 5 cigarettes a day. MEDICATIONS: All reviewed as listed in the [facility] including DuoNebs. She was also on prednisone, which she refused. The patient also had p.r.n. morphine, which was stopped as well. REVIEW OF SYSTEMS: A 10-point system obtained. Pertinent positives discussed in history of present illness, otherwise noncontributory. All systems that were negative were reviewed as well. PHYSICAL EXAMINATION: GENERAL: She is alert, answers most of the questions. VITAL SIGNS: Blood pressure 139/76. Pulse ox 97% on 2 liters, afebrile. HEENT: Sclerae nonicteric. NECK: Supple. LUNGS: Diminished breath sounds. CARDIOVASCULAR: Regular rate and rhythm. ABDOMEN: Soft, nontender. EXTREMITIES: No pitting edema. LABORATORY DATA: Reviewed. Her urine drug screen was positive for opiates. Urine had moderate hyaline casts, but no significant WBCs. INR 1.2. White cell count 15.4 at admission and hemoglobin 10.8 and platelets 294. IMPRESSION: 1. Acute hypercapnic respiratory failure, probably resulting in fall. I suspect this is related to the use of chronic opiates. 2. Abnormal chest x-ray, which is likely from interstitial markings. Cannot exclude mild CHF. We will obtain echocardiogram. Clinically, she lacks symptoms of infectious etiology. 3. Encephalopathy, probably related to chronic narcotic use, resulting in acute hypercapnic respiratory failure, clinically improving. 4. Azotemia/dehydration. 5. Normal lactic acid level. RECOMMENDATIONS: 1. I would repeat arterial blood gases. 2. Obtain an echocardiogram. 3. Continue with hydration. 4. Repeat chest x-ray in 24-48 hours. 5. Continue with present bronchodilators. 6. Discontinue prednisone. 7. Discussed with Dr. Cantu and will follow along with you. JEANNIE TERAN MD DR: KARTHIK/jemima JOB#: [id number] / [id number]
[2016-03-13 11:00] VITALS: BP 142/88
[2016-03-13 12:13] LABS: HCO3 ABG 27 mmol/L (21-28); PCO2 ABG 49 mmHg (35-46); PH ABG 7.36 (7.35-7.45); PO2 ABG 51 mmHg (65-108); SAT O2 ABG 86 % (92-99)
[2016-03-13 12:19] LABS: FIO2 ABG 21
[2016-03-13 15:00] VITALS: BP 142/79
[2016-03-13] MEDS ORDERED: ACET-704 PO (16:57)
[2016-03-13] MEDS ORDERED: TIZA2CAP PO (16:57)
[2016-03-13] MEDS ORDERED: IPRA4AER IH (16:57)
[2016-03-13] MEDS ORDERED: PROAIR HFA8.5 GM INH (16:57)
[2016-03-13] MEDS ORDERED: CLON0.5T3 PO (16:57)
[2016-03-13] MEDS ORDERED: BUDE10.2 IH (16:57)
[2016-03-13] MEDS ORDERED: PRED20TA PO (16:57)
[2016-03-13] MEDS ORDERED: HYDR50CA2 PO (16:57)
[2016-03-13] MEDS ORDERED: VENL100T PO (16:57)
[2016-03-13] MEDS ORDERED: AMOX1TAB61 PO (16:57)
[2016-03-13] MEDS ORDERED: TIZA4TAB PO (16:57)
[2016-03-13] MEDS ORDERED: VENL75TA PO (16:57)
[2016-03-13] MEDS ORDERED: TRAZ50TA15 PO (16:57)
[2016-03-13] MEDS ORDERED: PROM25TA10 PO (16:57)
[2016-03-13] MEDS ORDERED: CLON2TAB2 PO (16:57)
[2016-03-13] MEDS ORDERED: NAPR500T3 PO (16:57)
[2016-03-13] MEDS ORDERED: LAMO200T PO (16:57)
[2016-03-13] MEDS ORDERED: CICL6.6S3 TP (16:57)
[2016-03-13] MEDS ORDERED: NON FORMULARY ITEM (Albuterol Sulfate (Proair Hfa Inhaler) 2 PUFF) INH PRN (17:30)
[2016-03-13] MEDS ORDERED: tiZANidine 4 MG TABLET. PO PRN (18:00)
[2016-03-13] MEDS ORDERED: VENLAFAXINE XR 37.5 MG CAP.ER.24H. PO SCH (18:00)
--- NOTE | 2016-03-13 18:11 | CARD ---
APPROVED REPORT EXAM: Two-dimensional and M-mode echocardiogram with Doppler and color Doppler. Other Information Quality : Good INDICATION Congestive Heart Failure 2D DIMENSIONS Left Atrium(2D)3.4 (1.6-4.0cm)IVSd1.4 (0.7-1.1cm) Aortic Root(2D)2.7 (2.0-3.7cm)LVDd4.2 (3.9-5.9cm) LVOT Diameter1.9 (1.8-2.4cm)PWd1.3 (0.7-1.1cm) LVDs2.5 (2.5-4.0cm)FS (%) 30.0 % SV58.2 mlLVEF(%)70.0 (>50%) Aortic Valve AoV Peak Emanuel.138.4cm/sAoV VTI24.7cm AO Peak GR.7.7mmHgLVOT Peak Emanuel.126.1cm/s AO Mean GR.4mmHgAVA (VMAX)2.55cm2 EUGENE (VTI)2.90cm2 Mitral Valve MV E Vgsialog58.7cm/sMV DECEL [id number] MV A Xdykplof392.9cm/sE/A Ratio0.8 Tricuspid Valve TR P. [id number]/sRAP [id number] TR Peak Gr.[id number] Pulmonary Vein S1 Fqlvuonu73.0cm/sD2 Jmrjtsrq37.4cm/s PVa [id number] LEFT VENTRICLE The left ventricle is normal size. There is mild concentric left ventricular hypertrophy. The left ve ntricular systolic function is normal and the ejection fraction is within normal range. The Ejection Fraction is 70%. There is normal LV segmental wall motion. Transmitral Doppler flow pattern is Grade I-abnormal relaxation pattern. RIGHT VENTRICLE The right ventricle is normal size. The right ventricular systolic function is normal. ATRIA The left atrium size is normal. The right atrium size is normal. The interatrial septum is intact wit h no evidence for an atrial septal defect or patent foramen ovale as noted on 2-D or Doppler imaging. AORTIC VALVE The aortic valve is calcified but opens well. Doppler and Color Flow revealed no significant aortic r egurgitation. There is no significant aortic valvular stenosis. MITRAL VALVE The mitral valve is normal in structure There is no evidence of mitral valve prolapse. There is no mi tral valve stenosis. Doppler and Color-flow revealed trace mitral regurgitation. TRICUSPID VALVE The tricuspid valve is normal in structure and function. Doppler and Color Flow revealed trace tricus pid regurgitation. There is mild pulmonary hypertension. The PA pressure was estimated at 30 mmHg. Th ere is no tricuspid valve stenosis. PULMONIC VALVE The pulmonary valve is normal in structure and function. Doppler and Color Flow revealed no pulmonic valvular regurgitation. There is no pulmonic valvular stenosis. GREAT VESSELS The aortic root is normal in size. The ascending aorta is normal in size. The IVC is normal in size a nd collapses >50% with inspiration. PERICARDIAL EFFUSION There is no evidence of significant pericardial effusion. Critical Notification Critical Value: No <Conclusion> The left ventricular systolic function is normal and the ejection fraction is within normal range. The Ejection Fraction is 70%. Transmitral Doppler flow pattern is Grade I-abnormal relaxation pattern. There is mild concentric left ventricular hypertrophy. The left atrium size is normal. The right atrium size is normal. The aortic valve is calcified but opens well. Doppler and Color-flow revealed trace mitral regurgitation. Doppler and Color Flow revealed trace tricuspid regurgitation. There is mild pulmonary hypertension. The PA pressure was estimated at 30 mmHg. The pulmonary valve is normal in structure and function. There is no evidence of significant pericardial effusion.
[2016-03-13 19:00] VITALS: BP 142/69
[2016-03-13] MEDS: BUDESONIDE 0.5 MG/2 ML NEBU NEB SCH (20:21)
[2016-03-13] MEDS: VENLAFAXINE 75 MG TABLET. PO SCH (21:00)
[2016-03-13] MEDS ORDERED: HYDROXYZINE HCL 10 MG TABLET PO SCH (21:00)
[2016-03-13] MEDS ORDERED: NON FORMULARY ITEM (Budesonide/Formoterol Fumarate (Symbicort 160-4.5 Mcg Inhaler) 1 PUFF) IH SCH (21:00)
[2016-03-13] MEDS ORDERED: CICLOPIROX 8% TP SCH (21:00)
[2016-03-13] MEDS ORDERED: NON FORMULARY ITEM (Ipratropium/Albuterol Sulfate (Combivent Respimat Inhal) 2 INH) IH SCH (21:00)
[2016-03-13] MEDS: lamoTRIgine 100 MG TABLET. PO SCH (21:19)
[2016-03-13] MEDS: PROMETHAZINE 12.5 MG TABLET. PO SCH (21:20)
[2016-03-13] MEDS: traZODone 50 MG TABLET. PO SCH (21:20)
[2016-03-13] MEDS: NAPROXEN 500 MG TABLET PO SCH (21:20)
[2016-03-13] MEDS: FAMOTIDINE 20 MG TABLET. PO SCH (21:20)
[2016-03-13] MEDS: CLONAZEPAM 1 MG TABLET PO SCH (21:20)
[2016-03-13] MEDS: tiZANidine 4 MG TABLET. PO SCH (21:20)
[2016-03-13] MEDS: AMOXICILLIN/K CLAV 875/125MG TABLET. PO SCH (21:20)
[2016-03-13] MEDS: NYSTATIN TOPICAL POWDER 15GM BOTTLE. TP SCH (21:21)
[2016-03-13] MEDS: NICOTINE 21MG PATCH. TD SCH (21:21)
--- NOTE | 2016-03-13 21:43 | ACF ---
Admission Forms Criteria Admission Criteria Met?: BENNY Frederick Mar 13, 2016 21:43 HILDA SILVEIRA MD Mar 14, 2016 18:10
[2016-03-13] MEDS: LORAZEPAM 2 MG/ML VIAL IV PRN (22:54)
[2016-03-13 23:00] VITALS: BP 154/88
[2016-03-14] MEDS: IV NORMAL SALINE 1000ML BAG 1,000 ML IV SCH (05:46)
[2016-03-14] MEDS: HEPARIN PF for SUB-Q USE 5,000 UNIT/0.5 ML VIAL. SQ SCH ×3 (05:58→23:35)
--- NOTE | 2016-03-14 06:41 | CONS ---
DATE OF CONSULTATION: 03/13/2016 REASON FOR CONSULTATION: Acute renal failure. HISTORY OF PRESENT ILLNESS: The patient is a 60-year-old female who sustained a fall at home when she slipped on a step. She injured her head. She has received care for the same. She was noted to have an elevated creatinine of 2.1 with a BUN of 62. She has received IV fluids and is also on antibiotics, currently creatinine is back down to 1.4. She admits she was dehydrated. She claims she does not like the taste of water in the [place], [place] area. She apparently lives in a alf. She is known to have bipolar disorder and was on lithium in the past. Denies polyuria, polydipsia per se. PAST MEDICAL HISTORY: Bipolar, bronchitis, knee replacement surgery, history of depression, tobacco use, COPD, hysterectomy, possible Morgellons disease and history of tonsillectomy. SOCIAL HISTORY: Smokes 1 pack per day. No alcohol use. Urine drug screen was positive for opioids. FAMILY HISTORY: Negative for kidney problems. REVIEW OF SYSTEMS: Currently negative other than feels weak and thirsty and she is hungry. PHYSICAL EXAMINATION: VITAL SIGNS: Verbal to me, 142/88, temperature is 98.6, pulse 77, respirations 19, 95% on room air. GENERAL: Awake, alert and oriented, in no apparent distress. HEAD: Has a small bandage in place. HEENT: Sclerae and conjunctivae are normal. Mucous membranes moist. She is eating lunch. LUNGS: Clear to auscultation. ABDOMEN: Soft, nontender. Positive bowel sounds. No CVA tenderness. No back or spine tenderness or suprapubic tenderness. EXTREMITIES: Lower extremities have no edema. LABORATORY DATA: Potassium is 4.3, CO2 is 27, BUN 44, creatinine 1.4. ASSESSMENT AND PLAN: 1. Acute kidney injury, suspect due to dehydration, now much better. Continue IV fluids another 48 hours. 2. Dehydration. Continue IV fluids as mentioned. We will be available as needed. Please call if creatinine worsens. Based on patient's report, she claims "nothing is wrong with my kidneys" and does not want a sonogram. RYAN BARTON MD DR: ROSARIO/jemima JOB#: [id number] / [id number]
[2016-03-14 07:27] VITALS: BP 139/79
[2016-03-14] MEDS: PROMETHAZINE 12.5 MG TABLET. PO SCH ×3 (08:45→23:22)
[2016-03-14] MEDS: NICOTINE 21MG PATCH. TD SCH (08:45)
[2016-03-14] MEDS: AMOXICILLIN/K CLAV 875/125MG TABLET. PO SCH ×2 (08:45→23:23)
[2016-03-14] MEDS: tiZANidine 4 MG TABLET. PO SCH ×3 (08:46→23:25)
[2016-03-14] MEDS: NAPROXEN 500 MG TABLET PO SCH ×2 (08:46→23:26)
[2016-03-14] MEDS: lamoTRIgine 100 MG TABLET. PO SCH ×2 (08:47→23:24)
[2016-03-14] MEDS: NYSTATIN TOPICAL POWDER 15GM BOTTLE. TP SCH ×2 (08:47→23:22)
[2016-03-14] MEDS: VENLAFAXINE 75 MG TABLET. PO SCH ×2 (09:00→23:41)
[2016-03-14] MEDS: CLONAZEPAM 0.5 MG TABLET PO SCH ×2 (09:00→09:30)
[2016-03-14] MEDS: GUAIFENESIN 200 MG/10 ML LIQUID. PO PRN (09:06)
[2016-03-14] MEDS: HYDROXYZINE PAMOATE 25 MG CAPSULE PO SCH ×3 (09:06→23:42)
[2016-03-14] MEDS: IPRATRPIUM/ALBUTEROL 0.5/2.5MG 3 ML NEBU. NEB SCH ×4 (09:13→20:09)
[2016-03-14] MEDS: BUDESONIDE 0.5 MG/2 ML NEBU NEB SCH ×2 (09:13→20:09)
--- NOTE | 2016-03-14 09:30 | PDOC ---
PULMONARY PROGRESS NOTES Subjective feels better Vitals Vital Signs Date Time Temp Pulse Resp B/P Pulse Ox O2 Delivery O2 Flow Rate FiO2 03/14/16 07:27 96.9 79 18 139/79 97 Nasal Cannula 2.0 96.9 Lungs: Other (rales) Cardiovascular: S1 Abdomen: Soft Neuro Exam: Alert Extremities: No Edema Skin: Warm Labs Laboratory Tests Test 03/12/16 09:52 03/12/16 12:05 03/12/16 13:50 03/12/16 17:51 Urine Collection Type U cath Urine Color Yellow Urine Clarity Cloudy Urine pH 5.0 Urine Specific [place] 1.025 Urine Protein 100mg/dL (NEG-TRACE) Urine Glucose (UA) Negativemg/dL (NEG) Urine Ketones (Stick) Tracemg/dL (NEG) Urine Blood Moderate (NEG) Urine Nitrite Negative (NEG) Urine Bilirubin Small (NEG) Urine Urobilinogen Dipstick 0.2mg/dL (0.2 mg/dL) Urine Leukocyte Esterase Negative (NEG) Urine RBC 3-5/HPF (0-2) Urine WBC 1-4/HPF (0-4) Urine Squamous Epithelial Cells Few/LPF Urine Renal Epithelial Cells Few/LPF Urine Amorphous Sediment Present/HPF Urine Bacteria Few/HPF (0-FEW) Urine Hyaline Casts Moderate/HPF Urine Mucus Mod/LPF Urine Opiates Screen Pos (NEG) Urine Methadone Screen Neg (NEG) Urine Barbiturates Neg (NEG) Urine Phencyclidine Screen Neg (NEG) Urine Amphetamine/Methamphetamine Neg (NEG) Urine Benzodiazepines Screen Neg (NEG) Urine Cocaine Screen Neg (NEG) Urine Cannabinoids Screen Neg (NEG) Urine Ethyl Alcohol Neg (NEG) O2 Saturation 88% (92-99) Arterial Blood pH 7.28 (7.35-7.45) Arterial Blood pCO2 at Patient Temp 53mmHg (35-46) Arterial Blood pO2 at Patient Temp 59mmHg (65-108) Arterial Blood HCO3 24mmol/L (21-28) Arterial Blood Base Excess -3mmol/L (-3-3) FiO2 32% Troponin I Quantitative < 0.017ng/mL (0.000-0.055) Nasal Screen MRSA (PCR) Positive (Negative) Test 03/12/16 20:30 03/13/16 04:00 03/13/16 11:00 Troponin I Quantitative < 0.017ng/mL (0.000-0.055) White Blood Count 12.9x10^3/uL (4.0-11.0) Red Blood Count 3.77x10^6/uL (3.50-5.40) Hemoglobin 10.8g/dL (12.0-15.5) Hematocrit 33.5% (36.0-47.0) Mean Corpuscular Volume 89fL (79-100) Mean Corpuscular Hemoglobin 29pg (25-35) Mean Corpuscular Hemoglobin Concent 32g/dL (31-37) Red Cell Distribution Width 16.5% (11.5-14.5) Platelet Count 294x10^3/uL (140-400) Neutrophils (%) (Auto) 67% (31-73) Lymphocytes (%) (Auto) 23% (24-48) Monocytes (%) (Auto) 8% (0-9) Eosinophils (%) (Auto) 2% (0-3) Basophils (%) (Auto) 0% (0-3) Neutrophils # (Auto) 8.6x10^3uL (1.8-7.7) Lymphocytes # (Auto) 3.0x10^3/uL (1.0-4.8) Monocytes # (Auto) 1.0x10^3/uL (0.0-1.1) Eosinophils # (Auto) 0.2x10^3/uL (0.0-0.7) Basophils # (Auto) 0.0x10^3/uL (0.0-0.2) Sodium Level 141mmol/L (136-145) Potassium Level 4.3mmol/L (3.5-5.1) Chloride Level 106mmol/L (98-107) Carbon Dioxide Level 27mmol/L (21-32) Anion Gap 8 (6-14) Blood Urea Nitrogen 44mg/dL (7-20) Creatinine 1.4mg/dL (0.6-1.0) Estimated GFR (Cockcroft-Gault) 38.2 Glucose Level 113mg/dL (70-99) Calcium Level 8.6mg/dL (8.5-10.1) O2 Saturation 86% (92-99) Arterial Blood pH 7.36 (7.35-7.45) Arterial Blood pCO2 at Patient Temp 49mmHg (35-46) Arterial Blood pO2 at Patient Temp 51mmHg (65-108) Arterial Blood HCO3 27mmol/L (21-28) Arterial Blood Base Excess 1mmol/L (-3-3) FiO2 21 Laboratory Tests Test 03/13/16 11:00 O2 Saturation 86% (92-99) Arterial Blood pH 7.36 (7.35-7.45) Arterial Blood pCO2 at Patient Temp 49mmHg (35-46) Arterial Blood pO2 at Patient Temp 51mmHg (65-108) Arterial Blood HCO3 27mmol/L (21-28) Arterial Blood Base Excess 1mmol/L (-3-3) FiO2 21 Medications Active Scripts Medications Dose Route/Sig Days Date Category Ciclopirox 6.6 Ml Solution 8 % TP BID 03/13/16 Reported Prednisone 20 Mg Tablet 1 Tab PO DAILY 03/13/16 Reported Augmentin 875-125 Tablet (Amoxicillin/Potassium Clav) 1 Each Tablet 1 Tab PO BID 03/13/16 Reported Symbicort 160-4.5 Mcg Inhaler (Budesonide/Formoterol Fumarate) 10.2 Gm Hfa.aer.ad 1 Puff IH BID 03/13/16 Reported Tizanidine Hcl 4 Mg Tablet 1 Tab PO BID 03/13/16 Reported Tizanidine Hcl 2 Mg Capsule 2 Mg PO TID PRN 03/13/16 Reported Hydroxyzine Pamoate 50 Mg Capsule 1 Cap PO TID 03/13/16 Reported Combivent Respimat Inhal (Ipratropium/Albuterol Sulfate) 4 Gm Aer.w.adap 2 Inh IH QID 03/13/16 Reported Trazodone Hcl 50 Mg Tablet 1 Tab PO QHS 03/13/16 Reported Lamotrigine 200 Mg Tablet 1 Tab PO BID 03/13/16 Reported Venlafaxine Hcl 100 Mg Tablet 150 Mg PO DAILY 03/13/16 Reported Venlafaxine Hcl 75 Mg Tablet 1 Tab PO DAILY 03/13/16 Reported Naproxen 500 Mg Tablet 1 Tab PO BID 03/13/16 Reported Clonazepam 2 Mg Tablet 1 Tab PO HS 03/13/16 Reported Clonazepam 0.5 Mg Tablet 1 Tab PO DAILY 03/13/16 Reported Tylenol With Codeine #3 Tablet (Acetaminophen/Codeine Phosphate) 1 Each Tablet 1 Tab PO Q6HRS PRN 03/13/16 Reported Promethazine Hcl 25 Mg Tablet 1 Tab PO BID 03/13/16 Reported Proair Hfa Inhaler (Albuterol Sulfate) 8.5 Gm Hfa.aer.ad 2 Puff INH QID PRN 03/13/16 Reported Impression . 1. Acute hypercapnic respiratory failure, probably resulting in fall. I suspect this is related to the use of chronic opiates. 2. Abnormal chest x-ray, which is likely from interstitial markings. Cannot exclude mild CHF. . Clinically, she lacks symptoms of infectious etiology. 3. Encephalopathy, probably related to chronic narcotic use, resulting in acute hypercapnic respiratory failure, clinically improving. 4. Azotemia/dehydration. 5. Normal lactic acid level. Plan . 1. repeat arterial blood gases.improved. 2. echocardiogram. 3. Continue with hydration. 4. Repeat chest x-ray in 24 hours. 5. Continue with present bronchodilators. 6. off prednisone. 7. Discussed with Dr. Cantu and will follow along with you. JEANNIE TERAN MD Mar 14, 2016 09:30
[2016-03-14 10:15] VITALS: BP 139/77
[2016-03-14 14:10] VITALS: BP 149/87
--- NOTE | 2016-03-14 15:30 | PDOC ---
PROGRESS NOTES Chief Complaint Chief Complaint 1. s/p fall - encephalopathy, post concussive 2. NEW wo cr baseline number, vasomotor 3. COPD, acidosis on ABG, acute hypercarbia 4. acute hypoxia, possible chronic resp failure, and hypercapnic resp failure 5. bipolar d/o 6. arm rash 7. mild malnutrition 8. weakness, aq History of Present Illness History of Present Illness cont duoneb, doxy prednisone, if she accepts up with assist 6 min walk today Vitals Vitals Vital Signs Date Time Temp Pulse Resp B/P Pulse Ox O2 Delivery O2 Flow Rate FiO2 03/14/16 14:10 99.7 91 18 149/87 93 Nasal Cannula 2.0 99.7 Physical Exam General: Alert, No acute distress, Other (mod cooperative) Heart: Regular rate, No murmurs Lungs: Other (rales) Abdomen: Normal bowel sounds, Soft Extremities: No cyanosis, No edema Skin: No rashes Review of Systems Review of Systems no n./v/d Assessment and Plan Assessmemt and Plan Problems Medical Problems: (1) Head trauma Status: Acute (2) Hypoxia Status: Acute (3) Hypoxic Status: Acute Problems: Comment Review of Relevant I have reviewed the following items connie (where applicable) has been applied. Labs Laboratory Tests Test 03/12/16 17:51 03/12/16 20:30 03/13/16 04:00 03/13/16 11:00 Nasal Screen MRSA (PCR) Positive (Negative) Troponin I Quantitative < 0.017ng/mL (0.000-0.055) White Blood Count 12.9x10^3/uL (4.0-11.0) Red Blood Count 3.77x10^6/uL (3.50-5.40) Hemoglobin 10.8g/dL (12.0-15.5) Hematocrit 33.5% (36.0-47.0) Mean Corpuscular Volume 89fL (79-100) Mean Corpuscular Hemoglobin 29pg (25-35) Mean Corpuscular Hemoglobin Concent 32g/dL (31-37) Red Cell Distribution Width 16.5% (11.5-14.5) Platelet Count 294x10^3/uL (140-400) Neutrophils (%) (Auto) 67% (31-73) Lymphocytes (%) (Auto) 23% (24-48) Monocytes (%) (Auto) 8% (0-9) Eosinophils (%) (Auto) 2% (0-3) Basophils (%) (Auto) 0% (0-3) Neutrophils # (Auto) 8.6x10^3uL (1.8-7.7) Lymphocytes # (Auto) 3.0x10^3/uL (1.0-4.8) Monocytes # (Auto) 1.0x10^3/uL (0.0-1.1) Eosinophils # (Auto) 0.2x10^3/uL (0.0-0.7) Basophils # (Auto) 0.0x10^3/uL (0.0-0.2) Sodium Level 141mmol/L (136-145) Potassium Level 4.3mmol/L (3.5-5.1) Chloride Level 106mmol/L (98-107) Carbon Dioxide Level 27mmol/L (21-32) Anion Gap 8 (6-14) Blood Urea Nitrogen 44mg/dL (7-20) Creatinine 1.4mg/dL (0.6-1.0) Estimated GFR (Cockcroft-Gault) 38.2 Glucose Level 113mg/dL (70-99) Calcium Level 8.6mg/dL (8.5-10.1) O2 Saturation 86% (92-99) Arterial Blood pH 7.36 (7.35-7.45) Arterial Blood pCO2 at Patient Temp 49mmHg (35-46) Arterial Blood pO2 at Patient Temp 51mmHg (65-108) Arterial Blood HCO3 27mmol/L (21-28) Arterial Blood Base Excess 1mmol/L (-3-3) FiO2 21 Medications Current Medications Ondansetron HCl (Zofran) 4 mg PRN Q8HRS PRN IV NAUSEA/VOMITING; Start 03/12/16 at 08:30; Stop 03/13/16 at 08:29; Status DC Morphine Sulfate 2 mg PRN Q2HR PRN IV PAIN; Start 03/12/16 at 08:30; Stop at 08:29; Status DC Diphtheria/ Tetanus/Acell Pertussis 0.5 ml 0.5 ml ONCE ONCE VAX IM ; Start at 09:30; Stop 03/12/16 at 09:37; Status DC Sodium Chloride (Iv Sodium Chloride 0.9% 1000ml Bag) 1,000 ml @ 100 mls/hr Q10H IV Last administered on 03/14/16 05:46; Start 03/12/16 at 12:15 Albuterol/ Ipratropium (Duoneb) 3 ml RTQID NEB Last administered on 03/13/16 20 :21; Start 03/12/16 at 16:00; Stop 03/13/16 at 22:34; Status DC Albuterol Sulfate (Ventolin Neb Soln) 2.5 mg PRN Q4HRS PRN NEB SHORTNESS OF BREATH; Start 03/12/16 at 14:30; Stop 03/13/16 at 22:35; Status DC Doxycycline Hyclate (Vibra-Tab) 100 mg BID PO ; Start 03/12/16 at 21:00; Stop 03/12/16 at 21:44; Status DC Acetaminophen (Tylenol) 650 mg PRN Q6HRS PRN PO MILD PAIN / TEMP Last administered on 03/13/16 08:07; Start 03/12/16 at 14:30 Ondansetron HCl (Zofran) 4 mg PRN Q6HRS PRN IV NAUSEA/VOMITING; Start 03/12/16 at 14:30 Heparin Sodium (Porcine) 5,000 unit Q8HRS SQ Last administered on 03/14/16 05: 58; Start 03/12/16 at 22:00 Guaifenesin (Robitussin) 200 mg PRN Q4HRS PRN PO COUGH Last administered on 03/14 09:06; Start 03/12/16 at 14:45 Famotidine (Pepcid) 20 mg QHS PO Last administered on 03/13/16 21:20; Start 03/12/16 at 21:00 Prednisone 40 mg 40 mg DAILY PO ; Start 03/12/16 at 15:00; Stop 03/13/16 at 09:50 ; Status DC Levofloxacin/ Dextrose (LEVAQUIN 500mg PREMIX) 100 ml @ 100 mls/hr 1X ONCE IV ; Start 03/12/16 at 22:00; Stop 03/12/16 at 22:07; Status DC Nystatin 1 lilia 1 lilia BID TP Last administered on 03/14/16 08:47; Start 03/13/16 at 09:00 Levofloxacin/ Dextrose (LEVAQUIN 250mg PREMIX) 50 ml @ 50 mls/hr Q24H IV ; Start 03/13/16 at 22:00; Stop 03/13/16 at 22:00; Status DC Nicotine (Nicoderm Cq 21mg) 1 patch DAILY TD Last administered on 03/14/16 08: 45; Start 03/13/16 at 18:00 Acetaminophen/ Codeine Phosphate (Tylenol #3) 1 tab Q6HRS PRN PO PAIN; Start at 17:30 Amoxicillin/ Clavulanate Potassium (Augmentin 875/ 125mg) 1 tab BID PO Last administered on 03/14/16 08:45; Start 03/13/16 at 21:00 Clonazepam (Klonopin) 0.5 mg DAILY PO Last administered on 03/14/16 09:30; Start 03/14/16 at 09:00 Naproxen (Naprosyn) 500 mg BID PO Last administered on 03/14/16 08:46; Start at 21:00 Tizanidine HCl (Zanaflex) 4 mg BID PO Last administered on 03/13/16 21:20; Start 03/13/16 at 21:00 Trazodone HCl (Desyrel) 50 mg QHS PO Last administered on 03/13/16 21:20; Start 03/13/16 at 21:00 Venlafaxine HCl (Effexor Xr) 75 mg DAILY PO ; Start 03/13/16 at 18:00; Status Cancel Non-Formulary Medication 2 puff QID PRN INH WHEEZING; Start 03/13/16 at 17:30; Status UNV Non-Formulary Medication 1 puff BID IH ; Start 03/13/16 at 21:00; Status UNV Non-Formulary Medication 8 % BID TP ; Start 03/13/16 at 21:00; Stop 03/13/16 at 21 :00; Status DC Clonazepam (Klonopin) 2 mg QHS PO Last administered on 03/13/16 21:20; Start at 21:00 Hydroxyzine HCl (Atarax) 50 mg TID PO Last administered on 03/13/16 21:20; Start 03/13/16 at 21:00; Stop 03/13/16 at 22:35; Status DC Non-Formulary Medication 2 inh QID IH ; Start 03/13/16 at 21:00; Status UNV Lamotrigine (LaMICtal) 200 mg BID PO Last administered on 03/14/16 08:47; Start 03/13/16 at 21:00 Promethazine HCl (Phenergan) 25 mg BID PO Last administered on 03/13/16 21:20; Start 03/13/16 at 21:00 Tizanidine HCl (Zanaflex) 2 mg PRN Q8HRS PRN PO MUSCLE SPASMS; Start 03/13/16 at 18:00 Venlafaxine HCl (Effexor) 150 mg DAILY PO ; Start 03/14/16 at 09:00 Albuterol/ Ipratropium (Duoneb) 3 ml RTQID NEB Last administered on 03/14/16 12 :20; Start 03/13/16 at 20:00 Budesonide (Pulmicort) 0.5 mg RTBID NEB Last administered on 03/14/16 09:13; Start 03/13/16 at 20:00 Albuterol Sulfate (Ventolin Neb Soln) 2.5 mg PRN Q6HRS PRN NEB SHORTNESS OF BREATH; Start 03/13/16 at 18:00 Venlafaxine HCl (Effexor) 75 mg QHS PO ; Start 03/13/16 at 21:00 Lorazepam (Ativan) 1 mg PRN Q6HRS PRN IV ANXIETY / AGITATION Last administered on 03/13/16 22:54; Start 03/13/16 at 22:45 Hydroxyzine Pamoate (Vistaril) 50 mg TID PO Last administered on 03/14/16 09:06 ; Start 03/14/16 at 09:00 Active Scripts Active Reported Ciclopirox 6.6 Ml Solution 8 % TP BID Prednisone 20 Mg Tablet 1 Tab PO DAILY Augmentin 875-125 Tablet (Amoxicillin/Potassium Clav) 1 Each Tablet 1 Tab PO BID Symbicort 160-4.5 Mcg Inhaler (Budesonide/Formoterol Fumarate) 10.2 Gm Hfa.aer.ad 1 Puff IH BID Tizanidine Hcl 4 Mg Tablet 1 Tab PO BID Tizanidine Hcl 2 Mg Capsule 2 Mg PO TID PRN Hydroxyzine Pamoate 50 Mg Capsule 1 Cap PO TID Combivent Respimat Inhal (Ipratropium/Albuterol Sulfate) 4 Gm Aer.w.adap 2 Inh IH QID Trazodone Hcl 50 Mg Tablet 1 Tab PO QHS Lamotrigine 200 Mg Tablet 1 Tab PO BID Venlafaxine Hcl 100 Mg Tablet 150 Mg PO DAILY Venlafaxine Hcl 75 Mg Tablet 1 Tab PO DAILY Naproxen 500 Mg Tablet 1 Tab PO BID Clonazepam 2 Mg Tablet 1 Tab PO HS Clonazepam 0.5 Mg Tablet 1 Tab PO DAILY Tylenol With Codeine #3 Tablet (Acetaminophen/Codeine Phosphate) 1 Each Tablet 1 Tab PO Q6HRS PRN Promethazine Hcl 25 Mg Tablet 1 Tab PO BID Proair Hfa Inhaler (Albuterol Sulfate) 8.5 Gm Hfa.aer.ad 2 Puff INH QID PRN Vitals/I & O Vital Sign - Last 24 Hours 03/13/16 03/13/16 03/13/16 03/13/16 15:41 19:00 20:00 20:21 Temp 98.4 98.4 Pulse 87 Resp 20 B/P 142/69 Pulse Ox 96 97 O2 Delivery Nasal Cannula Nasal Cannula Nasal Cannula Nasal Cannula O2 Flow Rate 2.0 2.0 2.0 03/13/16 03/14/16 03/14/16 03/14/16 23:00 07:27 08:00 08:18 Temp 98.4 96.9 98.4 96.9 Pulse 103 79 Resp 20 18 B/P 154/88 139/79 Pulse Ox 93 97 94 O2 Delivery Nasal Cannula Nasal Cannula Nasal Cannula Nasal Cannula O2 Flow Rate 2.0 2.0 2.0 03/14/16 03/14/16 03/14/16 03/14/16 08:23 10:15 12:27 14:10 Temp 100.8 99.7 100.8 99.7 Pulse 93 91 Resp 18 18 B/P 139/77 149/87 Pulse Ox 94 92 94 93 O2 Delivery Nasal Cannula Nasal Cannula Nasal Cannula Nasal Cannula O2 Flow Rate 2.0 2.0 2.0 2.0 Intake and Output 03/13/16 03/13/16 03/14/16 15:00 23:00 07:00 Intake Total 550 ml 2300 ml 360 ml Output Total 600 ml Balance 550 ml 2300 ml -240 ml ALINE SHAW MD Mar 14, 2016 15:30
[2016-03-14 19:00] VITALS: BP 167/89
[2016-03-14 23:00] VITALS: BP 161/89
[2016-03-14] MEDS: FAMOTIDINE 20 MG TABLET. PO SCH (23:25)
[2016-03-14] MEDS: CLONAZEPAM 1 MG TABLET PO SCH (23:37)
[2016-03-14] MEDS: traZODone 50 MG TABLET. PO SCH (23:41)
[2016-03-14] MEDS: LORAZEPAM 2 MG/ML VIAL IV PRN (23:48)
[2016-03-15] MEDS: IV NORMAL SALINE 1000ML BAG 1,000 ML IV SCH ×3 (00:44→16:49)
[2016-03-15 03:00] VITALS: BP 175/93
[2016-03-15] MEDS: ALBUTEROL SULFATE 2.5 MG/3 ML NEBU. NEB PRN ×2 (04:56→04:58)
[2016-03-15] MEDS: HEPARIN PF for SUB-Q USE 5,000 UNIT/0.5 ML VIAL. SQ SCH ×3 (05:45→22:32)
[2016-03-15] MEDS: GUAIFENESIN 200 MG/10 ML LIQUID. PO PRN (05:59)
[2016-03-15 07:00] VITALS: BP 140/64
[2016-03-15] MEDS: IPRATRPIUM/ALBUTEROL 0.5/2.5MG 3 ML NEBU. NEB SCH ×4 (07:27→20:15)
[2016-03-15] MEDS: BUDESONIDE 0.5 MG/2 ML NEBU NEB SCH ×2 (07:30→20:15)
[2016-03-15] MEDS: NYSTATIN TOPICAL POWDER 15GM BOTTLE. TP SCH ×2 (09:00→22:02)
[2016-03-15] MEDS: tiZANidine 4 MG TABLET. PO SCH ×2 (09:48→22:01)
[2016-03-15] MEDS: NAPROXEN 500 MG TABLET PO SCH ×2 (09:49→22:01)
[2016-03-15] MEDS: CLONAZEPAM 0.5 MG TABLET PO SCH (09:49)
[2016-03-15] MEDS: AMOXICILLIN/K CLAV 875/125MG TABLET. PO SCH ×2 (09:49→22:01)
[2016-03-15] MEDS: HYDROXYZINE PAMOATE 25 MG CAPSULE PO SCH ×3 (09:49→22:01)
[2016-03-15] MEDS: ACETAMINOPHEN/CODEINE 300/30MG TABLET PO PRN ×2 (09:49→22:14)
[2016-03-15] MEDS: PROMETHAZINE 12.5 MG TABLET. PO SCH ×2 (09:49→22:02)
[2016-03-15] MEDS: lamoTRIgine 100 MG TABLET. PO SCH ×2 (09:50→22:01)
[2016-03-15] MEDS: VENLAFAXINE 75 MG TABLET. PO SCH ×2 (09:50→22:00)
[2016-03-15] MEDS: NICOTINE 21MG PATCH. TD SCH (09:50)
[2016-03-15 11:00] VITALS: BP 142/85
--- NOTE | 2016-03-15 14:54 | PDOC ---
PULMONARY PROGRESS NOTES Subjective no soa Vitals Vital Signs Date Time Temp Pulse Resp B/P Pulse Ox O2 Delivery O2 Flow Rate FiO2 03/15/16 11:00 97.9 80 19 142/85 93 Nasal Cannula 2.0 97.9 General: Alert Lungs: Other (decrease bs) Cardiovascular: S1 Abdomen: Soft Neuro Exam: Alert Extremities: No Edema Skin: Warm Medications Active Scripts Medications Dose Route/Sig Days Date Category Ciclopirox 6.6 Ml Solution 8 % TP BID 03/13/16 Reported Prednisone 20 Mg Tablet 1 Tab PO DAILY 03/13/16 Reported Augmentin 875-125 Tablet (Amoxicillin/Potassium Clav) 1 Each Tablet 1 Tab PO BID 03/13/16 Reported Symbicort 160-4.5 Mcg Inhaler (Budesonide/Formoterol Fumarate) 10.2 Gm Hfa.aer.ad 1 Puff IH BID 03/13/16 Reported Tizanidine Hcl 4 Mg Tablet 1 Tab PO BID 03/13/16 Reported Tizanidine Hcl 2 Mg Capsule 2 Mg PO TID PRN 03/13/16 Reported Hydroxyzine Pamoate 50 Mg Capsule 1 Cap PO TID 03/13/16 Reported Combivent Respimat Inhal (Ipratropium/Albuterol Sulfate) 4 Gm Aer.w.adap 2 Inh IH QID 03/13/16 Reported Trazodone Hcl 50 Mg Tablet 1 Tab PO QHS 03/13/16 Reported Lamotrigine 200 Mg Tablet 1 Tab PO BID 03/13/16 Reported Venlafaxine Hcl 100 Mg Tablet 150 Mg PO DAILY 03/13/16 Reported Venlafaxine Hcl 75 Mg Tablet 1 Tab PO DAILY 03/13/16 Reported Naproxen 500 Mg Tablet 1 Tab PO BID 03/13/16 Reported Clonazepam 2 Mg Tablet 1 Tab PO HS 03/13/16 Reported Clonazepam 0.5 Mg Tablet 1 Tab PO DAILY 03/13/16 Reported Tylenol With Codeine #3 Tablet (Acetaminophen/Codeine Phosphate) 1 Each Tablet 1 Tab PO Q6HRS PRN 03/13/16 Reported Promethazine Hcl 25 Mg Tablet 1 Tab PO BID 03/13/16 Reported Proair Hfa Inhaler (Albuterol Sulfate) 8.5 Gm Hfa.aer.ad 2 Puff INH QID PRN 03/13/16 Reported Impression . 1. Acute hypercapnic respiratory failure, probably resulting in fall. I suspect this is related to the use of chronic opiates. 2. Abnormal chest x-ray, which is likely from interstitial markings. Cannot exclude mild CHF. repeat cxr today .Clinically, she lacks symptoms of infectious etiology. 3. Encephalopathy, probably related to chronic narcotic use, resulting in acute hypercapnic respiratory failure, clinically improving. 4. Azotemia/dehydration. 5. Normal lactic acid level. Plan . 1. repeat arterial blood gases.improved. 2. echocardiogram.with normal EF, Grade I DD 3. Nebs 4. Repeat chest x-ray today 5. Continue with present bronchodilators. 6. off prednisone. 7. Discussed with JEANNIE Fernandez MD Mar 15, 2016 14:54
[2016-03-15 15:32] VITALS: BP 126/68
--- NOTE | 2016-03-15 15:56 | RAD ---
Indication congestive heart failure. A single view of the chest was obtained and is compared to a study 3 days earlier. Heart size is unchanged. Pulmonary vasculature is similar. No gross congestive heart failure is seen. There is volume loss at the lung bases probably reflecting atelectasis. There are likely tiny pleural effusions. No definite consolidated pneumonia is seen. IMPRESSION: Heart and pulmonary vasculature similar to the previous exam. Volume loss at the lung bases likely reflects atelectasis. Probable small bilateral pleural effusions
[2016-03-15 19:00] VITALS: BP 133/77
--- NOTE | 2016-03-15 21:29 | PDOC ---
PROGRESS NOTES Chief Complaint Chief Complaint 1. s/p fall - encephalopathy, post concussive 2. NEW wo cr baseline number, vasomotor 3. COPD, acidosis on ABG, acute hypercarbia 4. acute hypoxia, possible chronic resp failure, and hypercapnic resp failure 5. bipolar d/o 6. arm rash 7. mild malnutrition 8. weakness, aq History of Present Illness History of Present Illness cont duoneb, doxy prednisone, she has refused up with assist 6 min walk done Vitals Vitals Vital Signs Date Time Temp Pulse Resp B/P Pulse Ox O2 Delivery O2 Flow Rate FiO2 03/15/16 20:17 95 Nasal Cannula 2.0 03/15/16 19:00 97.9 82 18 133/77 97.9 Physical Exam Physical Exam odd affect, strange complaints General: Alert, No acute distress, Other (mod cooperative) Heart: Regular rate, No murmurs Lungs: Other (decrease bs) Abdomen: Normal bowel sounds, Soft Extremities: No cyanosis, No edema Skin: No rashes Review of Systems Review of Systems is upset about her insurance not covering lidocaine patches, she has refused them here and daily appears agitated about this and wants to discuss no n.v./d ongoing dyspnea back pain, leg pain, + malaise Assessment and Plan Assessmemt and Plan Problems Medical Problems: (1) Head trauma Status: Acute (2) Hypoxia Status: Acute (3) Hypoxic Status: Acute Problems: Comment Review of Relevant I have reviewed the following items connie (where applicable) has been applied. Medications Current Medications Ondansetron HCl (Zofran) 4 mg PRN Q8HRS PRN IV NAUSEA/VOMITING; Start 03/12/16 at 08:30; Stop 03/13/16 at 08:29; Status DC Morphine Sulfate 2 mg PRN Q2HR PRN IV PAIN; Start 03/12/16 at 08:30; Stop at 08:29; Status DC Diphtheria/ Tetanus/Acell Pertussis 0.5 ml 0.5 ml ONCE ONCE VAX IM ; Start at 09:30; Stop 03/12/16 at 09:37; Status DC Sodium Chloride (Iv Sodium Chloride 0.9% 1000ml Bag) 1,000 ml @ 100 mls/hr Q10H IV Last administered on 03/15/16t 16:49; Start 03/12/16 at 12:15 Albuterol/ Ipratropium (Duoneb) 3 ml RTQID NEB Last administered on 03/13/16 20 :21; Start 03/12/16 at 16:00; Stop 03/13/16 at 22:34; Status DC Albuterol Sulfate (Ventolin Neb Soln) 2.5 mg PRN Q4HRS PRN NEB SHORTNESS OF BREATH; Start 03/12/16 at 14:30; Stop 03/13/16 at 22:35; Status DC Doxycycline Hyclate (Vibra-Tab) 100 mg BID PO ; Start 03/12/16 at 21:00; Stop 03/12/16 at 21:44; Status DC Acetaminophen (Tylenol) 650 mg PRN Q6HRS PRN PO MILD PAIN / TEMP Last administered on 03/13/16 08:07; Start 03/12/16 at 14:30 Ondansetron HCl (Zofran) 4 mg PRN Q6HRS PRN IV NAUSEA/VOMITING; Start 03/12/16 at 14:30 Heparin Sodium (Porcine) 5,000 unit Q8HRS SQ Last administered on 03/15/16 14: 51; Start 03/12/16 at 22:00 Guaifenesin (Robitussin) 200 mg PRN Q4HRS PRN PO COUGH Last administered on 03/15 05:59; Start 03/12/16 at 14:45 Famotidine (Pepcid) 20 mg QHS PO Last administered on 03/14/16 23:25; Start 03/12/16 at 21:00 Prednisone 40 mg 40 mg DAILY PO ; Start 03/12/16 at 15:00; Stop 03/13/16 at 09:50 ; Status DC Levofloxacin/ Dextrose (LEVAQUIN 500mg PREMIX) 100 ml @ 100 mls/hr 1X ONCE IV ; Start 03/12/16 at 22:00; Stop 03/12/16 at 22:07; Status DC Nystatin 1 lilia 1 lilia BID TP Last administered on 03/14/16 23:22; Start 03/13/16 at 09:00 Levofloxacin/ Dextrose (LEVAQUIN 250mg PREMIX) 50 ml @ 50 mls/hr Q24H IV ; Start 03/13/16 at 22:00; Stop 03/13/16 at 22:00; Status DC Nicotine (Nicoderm Cq 21mg) 1 patch DAILY TD Last administered on 03/15/16 09: 50; Start 03/13/16 at 18:00 Acetaminophen/ Codeine Phosphate (Tylenol #3) 1 tab Q6HRS PRN PO PAIN Last administered on 03/15/16 09:49; Start 03/13/16 at 17:30 Amoxicillin/ Clavulanate Potassium (Augmentin 875/ 125mg) 1 tab BID PO Last administered on 03/15/16 09:49; Start 03/13/16 at 21:00 Clonazepam (Klonopin) 0.5 mg DAILY PO Last administered on 03/15/16 09:49; Start 03/14/16 at 09:00 Naproxen (Naprosyn) 500 mg BID PO Last administered on 03/15/16 09:49; Start at 21:00 Tizanidine HCl (Zanaflex) 4 mg BID PO Last administered on 03/15/16 09:48; Start 03/13/16 at 21:00 Trazodone HCl (Desyrel) 50 mg QHS PO Last administered on 03/14/16 23:41; Start 03/13/16 at 21:00 Venlafaxine HCl (Effexor Xr) 75 mg DAILY PO ; Start 03/13/16 at 18:00; Status Cancel Non-Formulary Medication 2 puff QID PRN INH WHEEZING; Start 03/13/16 at 17:30; Status UNV Non-Formulary Medication 1 puff BID IH ; Start 03/13/16 at 21:00; Status UNV Non-Formulary Medication 8 % BID TP ; Start 03/13/16 at 21:00; Stop 03/13/16 at 21 :00; Status DC Clonazepam (Klonopin) 2 mg QHS PO Last administered on 03/14/16 23:37; Start at 21:00 Hydroxyzine HCl (Atarax) 50 mg TID PO Last administered on 03/13/16 21:20; Start 03/13/16 at 21:00; Stop 03/13/16 at 22:35; Status DC Non-Formulary Medication 2 inh QID IH ; Start 03/13/16 at 21:00; Status UNV Lamotrigine (LaMICtal) 200 mg BID PO Last administered on 03/15/16 09:50; Start 03/13/16 at 21:00 Promethazine HCl (Phenergan) 25 mg BID PO Last administered on 03/15/16 09:49; Start 03/13/16 at 21:00 Tizanidine HCl (Zanaflex) 2 mg PRN Q8HRS PRN PO MUSCLE SPASMS; Start 03/13/16 at 18:00 Venlafaxine HCl (Effexor) 150 mg DAILY PO Last administered on 03/15/16 09:50; Start 03/14/16 at 09:00 Albuterol/ Ipratropium (Duoneb) 3 ml RTQID NEB Last administered on 03/15/16 20 :15; Start 03/13/16 at 20:00 Budesonide (Pulmicort) 0.5 mg RTBID NEB Last administered on 03/15/16 20:15; Start 03/13/16 at 20:00 Albuterol Sulfate (Ventolin Neb Soln) 2.5 mg PRN Q6HRS PRN NEB SHORTNESS OF BREATH Last administered on 03/15/16 04:58; Start 03/13/16 at 18:00 Venlafaxine HCl (Effexor) 75 mg QHS PO Last administered on 03/14/16 23:41; Start 03/13/16 at 21:00 Lorazepam (Ativan) 1 mg PRN Q6HRS PRN IV ANXIETY / AGITATION Last administered on 03/14/16 23:48; Start 03/13/16 at 22:45 Hydroxyzine Pamoate (Vistaril) 50 mg TID PO Last administered on 03/15/16 14:45 ; Start 03/14/16 at 09:00 Active Scripts Active Reported Ciclopirox 6.6 Ml Solution 8 % TP BID Prednisone 20 Mg Tablet 1 Tab PO DAILY Augmentin 875-125 Tablet (Amoxicillin/Potassium Clav) 1 Each Tablet 1 Tab PO BID Symbicort 160-4.5 Mcg Inhaler (Budesonide/Formoterol Fumarate) 10.2 Gm Hfa.aer.ad 1 Puff IH BID Tizanidine Hcl 4 Mg Tablet 1 Tab PO BID Tizanidine Hcl 2 Mg Capsule 2 Mg PO TID PRN Hydroxyzine Pamoate 50 Mg Capsule 1 Cap PO TID Combivent Respimat Inhal (Ipratropium/Albuterol Sulfate) 4 Gm Aer.w.adap 2 Inh IH QID Trazodone Hcl 50 Mg Tablet 1 Tab PO QHS Lamotrigine 200 Mg Tablet 1 Tab PO BID Venlafaxine Hcl 100 Mg Tablet 150 Mg PO DAILY Venlafaxine Hcl 75 Mg Tablet 1 Tab PO DAILY Naproxen 500 Mg Tablet 1 Tab PO BID Clonazepam 2 Mg Tablet 1 Tab PO HS Clonazepam 0.5 Mg Tablet 1 Tab PO DAILY Tylenol With Codeine #3 Tablet (Acetaminophen/Codeine Phosphate) 1 Each Tablet 1 Tab PO Q6HRS PRN Promethazine Hcl 25 Mg Tablet 1 Tab PO BID Proair Hfa Inhaler (Albuterol Sulfate) 8.5 Gm Hfa.aer.ad 2 Puff INH QID PRN Vitals/I & O Vital Sign - Last 24 Hours 03/14/16 03/15/16 03/15/16 03/15/16 23:00 03:00 04:59 07:00 Temp 98.4 97.7 97.7 98.4 97.7 97.7 Pulse 91 96 82 Resp 18 B/P 161/89 175/93 140/64 Pulse Ox 90 94 96 95 O2 Delivery Room Air Nasal Cannula Nasal Cannula Nasal Cannula O2 Flow Rate 2.0 2.0 2.0 03/15/16 03/15/16 03/15/16 03/15/16 07:29 10:56 11:00 15:25 Temp 97.9 97.9 Pulse 80 Resp 19 B/P 142/85 Pulse Ox 93 93 O2 Delivery Room Air Nasal Cannula Nasal Cannula Nasal Cannula O2 Flow Rate 2.0 2.0 2.0 03/15/16 03/15/16 03/15/16 15:32 19:00 20:17 Temp 97.7 97.9 97.7 97.9 Pulse 74 82 Resp 19 18 B/P 126/68 133/77 Pulse Ox 94 95 95 O2 Delivery Nasal Cannula Nasal Cannula Nasal Cannula O2 Flow Rate 2.0 2.0 2.0 Intake and Output 03/14/16 03/14/16 03/15/16 15:00 23:00 07:00 Intake Total 420 ml 480 ml 854 ml Output Total 1100 ml 350 ml 1625 ml Balance -680 ml 130 ml -771 ml ALINE SHAW MD Mar 15, 2016 21:29
[2016-03-15] MEDS: FAMOTIDINE 20 MG TABLET. PO SCH (22:01)
[2016-03-15] MEDS: CLONAZEPAM 1 MG TABLET PO SCH (22:01)
[2016-03-15] MEDS: traZODone 50 MG TABLET. PO SCH (22:01)
[2016-03-15 23:00] VITALS: BP 148/72
[2016-03-16 03:00] VITALS: BP 121/73
[2016-03-16] MEDS: HEPARIN PF for SUB-Q USE 5,000 UNIT/0.5 ML VIAL. SQ SCH (05:40)
[2016-03-16] MEDS: IV NORMAL SALINE 1000ML BAG 1,000 ML IV SCH (05:41)
[2016-03-16 07:00] VITALS: BP 117/49
[2016-03-16] MEDS: PROMETHAZINE 12.5 MG TABLET. PO SCH (08:28)
[2016-03-16] MEDS: CLONAZEPAM 0.5 MG TABLET PO SCH (08:28)
[2016-03-16] MEDS: NAPROXEN 500 MG TABLET PO SCH (08:28)
[2016-03-16] MEDS: HYDROXYZINE PAMOATE 25 MG CAPSULE PO SCH (08:29)
[2016-03-16] MEDS: tiZANidine 4 MG TABLET. PO SCH (08:29)
[2016-03-16] MEDS: VENLAFAXINE 75 MG TABLET. PO SCH (08:29)
[2016-03-16] MEDS: lamoTRIgine 100 MG TABLET. PO SCH (08:29)
[2016-03-16] MEDS: AMOXICILLIN/K CLAV 875/125MG TABLET. PO SCH (08:29)
[2016-03-16] MEDS: NICOTINE 21MG PATCH. TD SCH (08:30)
[2016-03-16] MEDS: NYSTATIN TOPICAL POWDER 15GM BOTTLE. TP SCH (08:37)
[2016-03-16] MEDS: BUDESONIDE 0.5 MG/2 ML NEBU NEB SCH (08:38)
[2016-03-16] MEDS: IPRATRPIUM/ALBUTEROL 0.5/2.5MG 3 ML NEBU. NEB SCH ×2 (08:38→12:41)
[2016-03-16] MEDS: ACETAMINOPHEN/CODEINE 300/30MG TABLET PO PRN (09:29)
[2016-03-16] MEDS ORDERED: PRED-220 PO (09:57)
--- NOTE | 2016-03-16 10:15 | PDOC3 ---
Discharge Summary Visit Information Date of Admission: Mar 12, 2016 Date of Discharge: Mar 16, 2016 Admitting Diagnosis: COPD, AE Final Diagnosis 1. s/p fall - encephalopathy, concussion 2. NEW wo cr baseline number, vasomotor 3. COPD, acidosis on ABG, acute hypercarbia 4. acute hypoxia, possible chronic resp failure, and hypercapnic resp failure 5. bipolar d/o 6. arm rash 7. mild malnutrition 8. weakness, aq Problems Medical Problems: (1) COPD (chronic obstructive pulmonary disease) with acute bronchitis Status: Acute (2) Head trauma Status: Acute (3) Hypoxia Status: Acute (4) Hypoxic Status: Acute Brief Hospital Course Allergies Allergies Coded Allergies Type Severity Reaction Last Updated Verified doxycycline Allergy Intermediate 03/12/16 Yes levofloxacin Allergy Intermediate 03/14/16 Yes thiothixene Allergy Intermediate 03/12/16 Yes I S O L A T I O N *CONTACT* Allergy Unknown 03/14/16 Yes Vital Signs Vital Signs Date Time Temp Pulse Resp B/P Pulse Ox O2 Delivery O2 Flow Rate FiO2 03/16/16 09:29 16 96 Nasal Cannula 2.0 03/16/16 07:00 95.9 71 117/49 95.9 Brief Hospital Course Ms. Wiseman is a 60 old female admitted after a fall, resp distress, acute hypercarbia, ABG 7.28, 53/59 persistent hypoxia, unable to wean 02, will req. 2 liters continous, 3 liters exertion she had multiple complaints about her primary care not coming to this hospital, and repeatedly complained of homelessness or her living condition, difficult to obtain accurate history, psych disorders not known on admit, likely bipolar d/o or NOS she was improved at [facility], Discharge Information Condition at Discharge: Improved Follow Up: Weeks Disposition/Orders: D/C to Home Scheduled Amoxicillin/Potassium Clav (Augmentin 875-125 Tablet) 1 TAB PO BID (Reported) Budesonide/Formoterol Fumarate (Symbicort 160-4.5 Mcg Inhaler) 1 PUFF IH BID ( Reported) Ciclopirox (Ciclopirox) 8 % TP BID (Reported) Clonazepam (Clonazepam) 1 TAB PO DAILY (Reported) Clonazepam (Clonazepam) 1 TAB PO HS (Reported) Hydroxyzine Pamoate (Hydroxyzine Pamoate) 1 CAP PO TID (Reported) Ipratropium/Albuterol Sulfate (Combivent Respimat Inhal) 2 INH IH QID (Reported ) Lamotrigine (Lamotrigine) 1 TAB PO BID (Reported) Naproxen (Naproxen) 1 TAB PO BID (Reported) Prednisone (Prednisone) 1 TAB PO DAILY (Reported) Prednisone (Prednisone) 10 MG PO UD Promethazine Hcl (Promethazine Hcl) 1 TAB PO BID (Reported) Tizanidine Hcl (Tizanidine Hcl) 1 TAB PO BID (Reported) Trazodone Hcl (Trazodone Hcl) 1 TAB PO QHS (Reported) Venlafaxine Hcl (Venlafaxine Hcl) 1 TAB PO DAILY (Reported) Venlafaxine Hcl (Venlafaxine Hcl) 150 MG PO DAILY (Reported) Scheduled PRN Acetaminophen With Codeine (Tylenol With Codeine #3 Tablet) 1 TAB PO Q6HRS PRN PRN PAIN (Reported) Albuterol Sulfate (Proair Hfa Inhaler) 2 PUFF INH QID PRN PRN WHEEZING (Reported ) Tizanidine Hcl (Tizanidine Hcl) 2 MG PO TID PRN PRN MUSCLE SPASMS (Reported) Patient Instructions Patient Instructions time > 30 min ALINE SHAW MD Mar 16, 2016 10:15
[2016-03-16 10:53] VITALS: BP 113/64
== END 2016-03-16 13:45 | disposition home or self-care (01) | DRG 682 ==
LOC: ER 08:08 → 5 NORTH 09:43 → OBSVTOIN 09:49
PROVIDERS: ADMIT Internal Medicine; ATTEND Internal Medicine
DX: N17.0 Acute kidney failure with tubular necrosis (principal); G93.40 Encephalopathy, unspecified; J96.22 Acute and chronic respiratory failure with hypercapnia; J96.21 Acute and chronic respiratory failure with hypoxia; E44.1 Mild protein-calorie malnutrition; E87.2 Acidosis; S06.0X9A Concussion with loss of consciousness of unspecified duration, initial encounter; W10.8XXA Fall (on) (from) other stairs and steps, initial encounter; Z90.710 Acquired absence of both cervix and uterus; E86.0 Dehydration; F17.210 Nicotine dependence, cigarettes, uncomplicated; Z96.659 Presence of unspecified artificial knee joint; F32.9 Major depressive disorder, single episode, unspecified; Z90.49 Acquired absence of other specified parts of digestive tract; Z59.0 Homelessness; Y93.89 Activity, other specified; Y92.098 Other place in other non-institutional residence as the place of occurrence of the external cause; Y99.8 Other external cause status; Z79.891 Long term (current) use of opiate analgesic; Z88.1 Allergy status to other antibiotic agents; Z88.8 Allergy status to other drugs, medicaments and biological substances; J44.9 Chronic obstructive pulmonary disease, unspecified
CPT/HCPCS: 36415; 36600; 51701; 70450; 71010; 72125; 73130; 80048; 80076; 81001; 82805; 83605; 83690; 83880; 83930; 84484; 85007; 85027; 85610; 85730; 87641; 93005; 93306; 94250; 94620; 94640; 94760; G0379; G0480; G0481; G6038; J2060; J7030; J7512; J7620; Q0169; Q0177; 80196; 99285-25